=== PATIENT | female | born 1980 | race Hispanic/Latino ===

== ENCOUNTER 2021-08-12 18:34 | Emergency (ER) | payer SELFPAY ==
--- OUTSIDE RECORDS SUMMARY | 2021-08-12 18:38 | XMS REPORT | Continuity of Care Document ---
:1980 Author Organization [facility] t Address [address] [place] [address] Care Team Providers Name Role Phone PCP, PATIENT DOES NOT HAVE A Primary Care Physician UnavailKinza Conde Attending Clinician Unavailable ANTONIO Attending Clinician Unavailable Antonio RAMOS Attending Clinician Doctor Unassigned, Name Attending Clinician Unavailable CURTIS Attending Clinician Unavailable ANTONIO Admitting Clinician Unavailable Payers Payer Name Policy Type Policy Number Effective Date Expiration Date S ource Problems Condition Condition Condition Status Onset Resolution Last Treating Co mments Source Name Details Category Date Date Treatment Clinician Date Obesity Obesity Disease Active Univers (BMI (BMI 8-28 ity of 30-39.9) 30-39.9) 00:00: [place] 00 Medical Branch Flatulence Flatulence Disease Active Overview : Univers , , 6-20 Formattin ity of eructation eructation 00:00: g of this [place] , and gas , and gas 00 note Medi estephania pain pain might be Branch different from the original. Added automatic ally from request for surgery [id number] Abdominal Abdominal Disease Active Overview: Univers pain, pain, 6-20 Formattin ity of epigastric epigastric 00:00: g of this [place] 00 note Medical might be Branch different from the original. Added automatic ally from request for surgery [id number] Dysphagia, Dysphagia, Disease Active Overview : Univers pharyngoes pharyngoes 6-20 Formattin ity of ophageal ophageal 00:00: g of this J[place] as phase phase 00 note Medical might be Branch different from the original. Added automatic ally from request for surgery [id number] Nausea and Nausea and Disease Active Overview : Univers vomiting vomiting 6-20 Formattin ity of in adult in adult 00:00: g of this Jt as 00 note Medical might be Branch different from the original. Added automatic ally from request for surgery [id number] Breast Breast Disease Active Univers pain pain 9-26 ity of 00:00: Medical Branch UTI UTI Disease Active Univers symptoms symptoms 9-15 ity of 00:00: [place] [facility] Well woman Well woman Disease Active U nivers exam exam 9-20 ity of 00:00: [place] [facility] Right Right Disease Active Univers adnexal adnexal 9-20 ity of tenderness tenderness 00:00: [place] [address] Medical Branch Over Over Disease Active Univers weight weight 9-20 ity of 00:00: [place] [facility] Allergies, Adverse Reactions, Alerts Allergy Allergy Status Severity Reaction(s) Onset Inactive Treating Comm ents Source Name Type Date Date Clinician AMOXICIL DRUG Active Med Rash Univers LOLA INGREDI 9-15 ity of 00:00: [place] [address] Medical Branch Amoxicil Propensi Active Rash Univer s lola ty to 9-15 ity of adverse 00:00: [place] reaction 00 Medical s Branch Social History Social Habit Start Date Stop Date Quantity Comments Source History SDRI University o f Alcohol Frequency [place] M edical Branch History [facility] University o f Alcohol Std [place] Medical Drinks Branch History [facility] o f Alcohol Binge [place] Medic al Branch Exposure to Not sure [facility] SARS-CoV-2 [place] Medical (event) Branch Alcohol intake 2020-12-11 2020-12-11 Current University of 00:00:00 00:00:00 non-drinker of [facility] alcohol Branch (finding) Alcohol Comment 2017-10-31 2017-10-31 social Universit y of 00:00:00 00:00:00 [facility] Sex Ass[birth year] Universit y of 00:00:00 00:00:00 [facility] Smoking Status Start Date Stop Date Source Never smoker [facility] Medical Branch Medications Ordered Filled Start Stop Current Ordering Indication Dosage Frequency Signature Comments Components Source Medication Medication Date Date Medication? Clinician (SIG) Name Name maalox:diph 2020-05 No 15mL 15 mL, Uni vers enhydrAMINE 06-12 Oral, ity of :lidocaine 04:45: 03:45 ONCE, 1 Jt as 2 % viscous 00 :00 dose, On Medi estephania 1:1:1 Mon Branch (FIRST[facility]MOUT 04/11/21 [facility]) at 2245, oral NEGIN suspension 15 mL pantoprazol 2020-05 No 40mg 40 mg, Uni vers e 06-12 Slow IV ity of (PROTONIX) 04:00: 02:57 Push, [place] injection 00 :00 ONCE, 1 Medical 40 mg dose, On Branch [facility] 04/11/21 at 2200 morpHINE 2020-05 No 4mg 4 mg, Slow Un hui injection 4 06-12 IV Push, ity of mg 02:30: 01:46 ONCE, 1 [place] 00 :00 dose, On Medical [facility] Branch 04/11/21 at 2030, STAT ondansetron 2020-05 No 4mg 4 mg, Slow Univers (ZOFRAN 06-12 IV Push, ity of (PF)) 02:30: 01:46 ONCE, 1 [place] injection 4 00 :00 dose, On [facility] estephania mg [facility] Branch 04/11/21 at 2030, NEGIN NaCl 0.9% 2020-05 No 1000mL at 999 Uni vers (NS) bolus 06-1230 mL/hr, ity of infusion 02:30: 02:30 1,000 mL, Jt as 1,000 mL 00 :00 IV Medical Infusion, Branch ONCE, 1 dose, On [facility] 04/11/21 at 2030, NEGIN FENTanyl PF 2020-05 No 100ug 100 mcg, Univers (SUBLIMAZE 06-12 Slow IV ity o f (PF)) 02:26: 02:29 Push, [place] injection 00 :00 ONCE, 1 Medical 100 mcg dose, On Branch [facility] 04/11/21 at 2030, Routine metoclopram 2020-05 No 10mg 10 mg, Uni vers cherry HCl 06-12 Slow IV ity of (REGLAN) 02:26: 02:29 Push, [place] injection 00 :00 ONCE, 1 Medical 10 mg dose, On Branch 04/11/21 at 2030, NEGIN ondansetron 2020-05 Yes [id number] 4mg Take 1 Univers 4 mg 1-29 tablet by ity of disintegrat 00:00: mouth [place] ing tablet 00 every 4 Medica l (four) Branch hours as needed for Nausea and Vomiting (N/V). sucralfate 2020-05 Yes [id number] 1g Take 1 U nivers 1 gram 1-29 tablet by ity of tablet 00:00: mouth [place] 00 before Medical meals and Branch at bedtime. pantoprazol 2020-05 Yes [id number] 40mg Take 1 Univers e 40 mg EC 1-29 tablet by ity of tablet 00:00: mouth [place] 00 daily. Medical Branch dicyclomine 2020-05 Yes [id number] 20mg Take 1 Univers 20 mg 1-29 tablet by ity of tablet 00:00: mouth 4 [place] 00 (four) Medical times Branch daily. albuterol Yes [id number] 2{puff} Inhale 2 Univers 90 7-31 Puffs ity of mcg/actuati 00:00: every 4 Jt as on inhaler 00 (four) Medical hours as Branch needed for Wheezing or Shortness of Breath. benzonatate Yes [id number] 200mg Take 2 Univers 100 mg 7-31 capsules ity of capsule 00:00: [place] mouth 3 [place] 00 (three) Medical times Branch daily as needed for Cough. albuterol Yes [id number] 2{puff} Inhale 2 Univers 90 7-31 Puffs ity of mcg/actuati 00:00: every 4 Jt as on inhaler 00 (four) Medical hours as Branch needed for Wheezing or Shortness of Breath. benzonatate Yes [id number] 200mg Take 2 Univers 100 mg 7-31 capsules ity of capsule 00:00: [place] 3 [place] 00 (three) Medical times Branch daily as needed for Cough. Immunizations Ordered Filled Immunization Date Status Comments [facility] e Immunization Name Name TDAP (ADACEL) 2016-01-[address] [facility] VACCINE 00:00:00 [facility] TDAP (ADACEL) 2016-01-13 Completed [place] of VACCINE 00:00:00 [facility] Rubella 2010-12-15 Completed University of 00:00:00 [facility] Rubella 2010-12-15 Completed University of 00:00:00 [facility] Td 2009-10-03 Completed University of 00:00:00 [facility] Td 2009-10-03 Completed University of 00:00:00 [facility] Influenza Virus 2008-06-26 Completed Universit y of Vaccine 00:00:00 [facility] MMR 2008-06-26 Completed University of 00:00:00 [facility] Influenza Virus 2008-06-26 Completed Universit y of Vaccine 00:00:00 [facility] MMR 2008-06-26 Completed University of 00:00:00 [facility] Vital Signs Vital Name Observation Time Observation Value Comments Source Systolic blood 2021-04-12 05:01:00 105 mm[Hg] [facility] Diastolic blood 2021-04-12 05:01:00 68 mm[Hg] [facility] Heart rate 2021-04-12 05:01:00 77 /min [facility] Respiratory rate 2021-04-12 05:01:00 16 /min [facility] Oxygen saturation in 2021-04-12 05:01:00 99 /min [facility] Arterial blood by [facility] Pulse oximetry Branch Body height 2021-04-12 00:59:[address] [facility] Body weight 2021-04-12 00:59:[address] [facility] BMI 2021-04-12 00:59:00 30.18 kg/m2 [facility] Body temperature 2021-04-12 00:59:00 37.72 [place] [facility] Procedures Procedure Date / Time Performing Clinician Source Performed CT ABDOMEN PELVIS WO 2021-04-12 02:19:08 Tamika Alvarez [facility] CONTRAST [facility] LIPASE 2021-04-12 01:49:00 Tamika Alvarez [facility] COMP. METABOLIC PANEL 2021-04-12 01:49:00 Tamika Alvarez [facility] ([id number]) [facility] CBC WITH DIFF 2021-04-12 01:49:00 Tamika Alvarez [facility] PROTHROMBIN TIME / INR 2021-04-12 01:49:00 Tamika Alvarez [facility] ACTIVATED PARTIAL 2021-04-12 01:49:00 Tamika Alvarez [facility] THRMPLAS [facility] URINALYSIS 2021-04-12 01:49:00 Tamika Alvarez o f [facility] COVID-19 (ID NOW RAPID 2021-04-12 01:49:00 Tamika Alvarez [facility] TESTING) [facility] POCT TEST 2021-04-12 01:48:00 Tamika Alvarez ty of [facility] CONSENT/REFUSAL FOR 2021-04-12 00:45:07 Doctor [facility] [place] [facility] Encounters Start End Encounter Admission Attending Care Care Encounter Source Date/Time Date/Time Type Type Clinicians Facility Department ID 2021-03-14 Emergency [facility] [id number] Univers 12:11:44 itnithin [facility] 2021-07-20 2021-07-20 Outpatient Kinza HALLMAN [facility] [id number] Univers 15:00:00 15:00:00 ALLI ramires o f [facility] 2021-07-20 2021-07-20 [facility] [id number] Univers 14:15:00 14:15:00 ALLI [id number] ity o f [facility] 2021-04-11 2021-04-11 Emergency [facility] [id number] Univers 19:07:00 23:10:00 TAMIKA ramires [facility] 2021-04-11 2021-04-11 [facility] [id number] Univers 19:07:00 23:10:00 Tamika ROME [id number] i ty of [place] 4.2.7.2.686 [facility] [id number] [facility] 084 Branch 2021-04-11 2021-04-11 Orders Doctor LINARES [id number] Univers 00:00:00 00:00:00 Only UnassignedSALEEM [id number] ity of [place] [facility] 4.2.7.2.686 Jt as [id number] [address] 2020-10-04 2020-10-04 Outpatient Kinza ACEVEDO [facility] [id number] Univers 10:30:00 10:30:00 WIL [id number] [facility] 2020-10-04 2020-10-04 Outpatient Kinza ACEVEDO [facility] [id number] Univers 10:30: 10:30:00 WIL [facility] Results Test Description Test Time Test Comments Results Result Comments Source COMP. METABOLIC PANEL ([id number]) 2021-04-12 02:22:00 Test Item Value Reference Range Interpretation Comme nts NA (test code = 9790808305) 135 mmol/L 135-145 K (test code = 1366614459) 3.9 mmol/L 3.5-5.0 CL (test code = 1153024250) 104 mmol/L 98-108 CO2 TOTAL (test code = 23 mmol/L 23-31 7663969606) AGAP (test code = 9618204809) 2-16 BUN (test code = 3218564997) 15 mg/dL 7-23 GLUCOSE (test code = 2300605612) 107 mg/dL 70-110 CREATININE (test code = 0.62 mg/dL 0.50-1.04 6444172657) TOTAL BILI (test code = 0.6 mg/dL 0.1-1.4 7659018214) CALCIUM (test code = 8126339368) 9.0 mg/dL 8.6-10.6 T PROTEIN (test code = 7.3 g/dL 6.3-8.2 8604570928) ALBUMIN (test code = 1009646732) 4.3 g/dL 3.5-5.0 ALK PHOS (test code = 2118962862) 73 U/L 34-122 ALTv (test code = 1742-6) 17 U/L 5-35 AST(SGOT) (test code = 27 U/L 13-40 9057519394) eGFR (test code = 3897910015) mL/min/1.73m2 TRINY (test code = TRINY) Association of Glomerular Filtration Rate (GFR) and Staging of Kidney Disease* + +--------- + ----+| GFR (mL/min/1.73 m2) ?| With Kidney Damage ?| ?Without Kidney Damage+ +--- + +| ?>90 ?| ?Stage one ?| ? Normal ?+ +-------- + -----+| ?60-89 ?| ?Stage two ?| ? Decreased GFR ? + +--------- + ----+| ?30-59 ?| ?Stage three ?| ? Stage three ? + +--------- + ----+| ?15-29 ?| ?Stage four ? | ? Stage four ?+ +-------- + -----+| ?<15 (or dialysis) ? ?| ?Stage five ? | ? Stage five ?+ +-------- + -----+ *Each stage assumes the associated GFR level has been in effect for at least three months. ?Stages 1 to 5, with or without kidney disease, indicate chronic kidney disease. Notes: Determination of stages one and two (with eGFR >59mL/min/1.73 m2) requires estimation of kidney damage for at least three months as defined by structural or functional abnormalities of the kidney, manifested by either:Pathological abnormalities or Markers of kidney damage (including abnormalities in the composition of the blood or urine or abnormalities in imaging tests). [facility]22[facility]00 Test Item Value Reference Range Interpretation Comments LIPASE (test code = 5441426158) 49 U/L 0-220 Lab Interpretation (test code = Normal 66161-4) [facility] THRMPLAS [id number] 02:17:41 Test Item Value Reference Range Interpretation Comments APTT Patient (test See_Comment [Automat ed code = 3173-2) message] The system which generated this result transmitted reference range : 23 - 38 Seconds . The reference range was not used to interpr et this result as normal/abnormal . TRINY (test code = TRINY) The [facility] patient population mean normal value for aPTT is 30 seconds. Lab Interpretation Normal (test code = 54542-1) [facility] / [id number] 02:15:40 Test Item Value Reference Range Interpretation Comments PROTIME PATIENT (test See_Comment [Auto mated message] code = 5964-2) The system wh ich generated this result transmitted ref erence range: 12.0 - 1 4.7 Seconds. The re ference range was not u sed to interpret this result as normal/abnor mal. INR (test code = 6301-6) Nor mal INR <1.1; Warfarin Therap eutic range 2.0 to 3. 0 or 2.5 to 3.5, dep ending upon the indica tions. Lab Interpretation (test Normal code = 17870-4) [facility] WITH [id number] 02:08:23 Test Item Value Reference Range Interpretation Comments WBC (test code = See_Comment [Automated 6690-2) message] The sy stem which generated this result transmitted reference range : 4.30 - 11.10 10*3/?L. The reference range was not used to interpret this result as normal/abnormal . RBC (test code = See_Comment [Automated 789-8) message] The sy stem which generated this result transmitted reference range : 3.93 - 5.25 10*6/?L. The reference range was not used to interpret this result as normal/abnormal . HGB (test code = 12.9 g/dL 11.6-15.0 718-7) HCT (test code = 38.7 % 35.7-45.2 4544-3) MCV (test code = 87.2 fL 80.6-95.5 787-2) MCH (test code = 29.1 pg 25.9-32.8 785-6) MCHC (test code = 33.3 g/dL 31.6-35.1 786-4) RDW-SD (test code = 40.4 fL 39.0-49.9 11180-7) RDW-CV (test code = 12.6 % 12.0-15.5 788-0) PLT (test code = See_Comment L [Automated 777-3) message] The sy stem which generated this result transmitted reference range : 166 - 358 10*3/ ?L. The reference r jayda was not used to interpret this result as normal/abnormal . MPV (test code = 12.5 fL 9.5-12.9 72844-0) NRBC/100 WBC (test See_Comment [Automat ed code = 8323742272) message] The system which generated this result transmitted reference range : 0.0 - 10.0 /100 WBCs. The refer ence range was not u sed to interpret th is result as normal/abnormal . NRBC x10^3 (test code <0.01 See_Comment [Auto mated = 3388702126) message] The s ystem which generated this result transmitted reference range : 10*3/?L. The reference range was not used to interpret this result as normal/abnormal . GRAN MAT (NEUT) % 78.2 % (test code = 770-8) IMM GRAN % (test code 0.60 % = 5683439455) LYMPH % (test code = 13.9 % 736-9) MONO % (test code = 6.9 % 5905-5) EOS % (test code = 0.2 % 713-8) BASO % (test code = 0.2 % 706-2) GRAN MAT x10^3(ANC) 4.21 10*3/uL 1.88-7.09 (test code = 3529327611) IMM GRAN x10^3 (test 0.03 10*3/uL 0.00-0.06 code = 3370146599) LYMPH x10^3 (test code 0.75 10*3/uL 1.32-3.29 L = 731-0) MONO x10^3 (test code 0.37 10*3/uL 0.33-0.92 = 742-7) EOS x10^3 (test code = <0.03 0.03-0.39 L 711-2) BASO x10^3 (test code <0.03 0.01-0.07 = 704-7) Lab Interpretation Abnormal (test code = 63073-9) [facility] [id number] 01:48:00 Test Item Value Reference Range Interpretation Comments POCT PREG (test code = 1605) negative On board controls acceptable with present C Line (test code = 3574) POCT PREG LOT # (test code = 3575) [id number] POCT PREG TEST DATE (test 2022-06-13 code = 3576) Lab Interpretation (test code = Normal 61267-9) [facility]"
[2021-08-12] MEDS ORDERED: ACETAMINOPHEN 500 MG TAB ONE (19:55)
[2021-08-12] MEDS ORDERED: BENZONATATE 100 MG CAP PO ONE (19:56)
[2021-08-12 20:07] LABS: SARS-COV-2 RT PCR NEGATIVE (NEGATIVE)
[2021-08-12 20:08] LABS: Urine Blood Negative (Negative); Urine Glucose Negative (Negative); Urine Protein Negative (Negative); Urine pH 6.5 (5.0-7.0)
--- NOTE | 2021-08-12 21:41 | RAD REPORT ---
EXAM DESCRIPTION: RAD - Chest Pa And Lat (2 Views) - 08/12/2021 8:35 pm CLINICAL HISTORY: COUGH COMPARISON: Portable 04/19/2011 TECHNIQUE: Frontal and lateral views of the chest were obtained. FINDINGS: The lungs are clear. Heart size is normal and central vasculature is within normal limit s. No pleural effusion or pneumothorax seen. No acute bony finding noted. No aortic abnormality. No significant change from comparison study. IMPRESSION: No acute cardiopulmonary process.
--- NOTE | 2021-08-12 21:59 | EDPHYS ---
Physician Documentation [facility] Name: Kemi Miller Age: 41 yrs Sex: Female : 1980 Arrival Date: 08/12/2021 Time: 18:36 Bed 11 Private MD: ED Physician Nicho Phan Historical: - Allergies: 08/12 18:41 PENICILLINS; ab2 18:41 Amoxicillin; ab2 - PMHx: 18:41 None; ab2 - PSHx: 18:41 Appendectomy; Cholecystectomy; ab2 - Immunization history:: Adult Immunizations up to date. - Social history:: Smoking status: Patient denies any tobacco usage or history of. Vital Signs: 18:39 BP 143 / 89; Pulse 77; Resp 16; Temp 97.8(TE); Pulse Ox 100% on R/A; Weight 72.57 kg; ab2 Height 5 ft. 2 in. (157.48 cm); Pain 5/10; 21:14 BP 110 / 72; Pulse 80; Resp 16; Pulse Ox 100% on R/A; Pain 6/10; ab2 18:39 Body Mass Index 29.26 (72.57 kg, 157.48 cm) ab2 MDM: 19:37 Patient medically screened. cp 08/12 18:44 Order name: COVID-19/FLU A+B (Document "Date of Onset" if Symptomatic); Complete Time: ab2 21:16 08/12 19:48 Order name: Strep cp 08/12 19:48 Order name: XRAY Chest Pa And Lat (2 Views); Complete Time: 21:52 cp 08/12 20:08 Order name: Urine Dipstick-Ancillary; Complete Time: 21:16 EDSC 08/12 19:48 Order name: Urine Dipstick-Ancillary (obtain specimen); Complete Time: 20:12 cp 08/12 19:48 Order name: Urine Test (obtain specimen); Complete Time: 20:12 cp Administered Medications: 19:56 Drug: Tylenol 1000 mg Route: PO; ag7 21:15 Follow up: Response: No adverse reaction ab2 19:57 Drug: Tessalon Perle (benzonatate) 100 mg Route: PO; ag7 21:15 Follow up: Response: No adverse reaction ab2 22:12 CANCELLED (Physician Discretion): Benadryl (diphenhydrAMINE) 50 mg IVP once cp 22:13 CANCELLED (Duplicate Order): Benadryl (diphenhydrAMINE) 50 mg PO once tw5 22:15 Drug: predniSONE 60 mg Route: PO; ag7 22:23 Follow up: Response: Medication administered at discharge. ag7 22:15 Drug: Pepcid (famotidine) 20 mg Route: PO; ag7 22:23 Follow up: Response: Medication administered at discharge. ag7 22:15 Drug: Benadryl (diphenhydrAMINE) 50 mg Route: PO; ag7 22:23 Follow up: Response: No adverse reaction; Medication administered at discharge. ag7 Disposition Summary: 08/12/21 21:58 Discharge Ordered Location: Home cp Problem: new cp Symptoms: have improved cp Condition: Stable cp Diagnosis - Acute pharyngitis, unspecified cp - Cough cp Followup: cp - With: Private Physician - When: 2 - 3 days - Reason: Worsening of condition Discharge Instructions: - Discharge Summary Sheet cp - Sore Throat cp - Cool Mist Vaporizer cp - Cough, Adult cp Forms: - Medication Reconciliation Form cp - Thank You Letter cp - Antibiotic Education cp - Prescription Opioid Use cp Prescriptions: - Bromfed DM 2-30-10 mg/5 mL Oral syrup - take 10 milliliter by ORAL route every 6 hours; 180 milliliter; Refills: 0, cp Product Selection Permitted - clarithromycin 500 mg Oral tablet - take 1 tablet by ORAL route every 12 hours for 10 days; 20 tablet; Refills: 0, cp Product Selection Permitted Signatures: Dispatcher [employer] [facility] Saul Mercedes PA PA cp Wood, Tiffany tw5 Jeovanny Kimble 2 Jennifer Whitaker RN RN ag7 Corrections: (The following items were deleted from the chart) 22:12 21:16 Benadryl (diphenhydrAMINE) 50 mg IVP once ordered. cp cp 22:13 22:13 Benadryl (diphenhydrAMINE) 50 mg PO once ordered. tw5 tw5
--- NOTE | 2021-08-12 21:59 | ER ---
Nurse's Notes [facility] Name: Kemi Miller Age: 41 yrs Sex: Female : 1980 Arrival Date: 08/12/2021 Time: 18:36 Bed 11 Private MD: Diagnosis: Acute pharyngitis, unspecified;Cough Presentation: 08/12 18:39 Chief complaint: Patient states: "I started having throat pain and itching, now my ears ab2 hurting and my back hurts from coughing so much." Pt denies n/v/d, abdominal pain, chest pain or SOB. Chief complaint:. Coronavirus screen: Vaccine status: Patient reports receiving the 2nd dose of the covid vaccine. Client denies travel out of the [place] in the last 14 days. cough unrelated to allergies, muscle pain, sore throat, Client presents with at least one sign or symptom that may indicate coronavirus-19. Standard/surgical mask placed on the client. Provider contacted for isolation considerations. Ebola Screen: Patient negative for fever greater than or equal to 101.5 degrees Fahrenheit, and additional compatible Ebola Virus Disease symptoms Patient denies exposure to infectious person. Patient denies travel to an Ebola-affected area in the 21 days before illness onset. No symptoms or risks identified at this time. Initial Sepsis Screen: Does the patient meet any 2 criteria? No. Patient's initial sepsis screen is negative. Does the patient have a suspected source of infection? No. Patient's initial sepsis screen is negative. Risk Assessment: Do you want to hurt yourself or someone else? Patient reports no desire to harm self or others. Onset of symptoms is unknown. 18:39 Method Of Arrival: Ambulatory ab2 18:39 Acuity: [place] 4 ab2 Triage Assessment: 18:42 General: Appears in no apparent distress. comfortable, Behavior is calm, cooperative, ab2 appropriate for age. Pain: Complains of pain in neck. EENT: Reports nasal congestion pain when swallowing ear pain. Neuro: Level of Consciousness is awake, alert, obeys commands, Oriented to person, place, time, situation, Appropriate for age. Cardiovascular: No deficits noted. Respiratory: Airway is patent. GI: No deficits noted. Historical: - Allergies: 18:41 PENICILLINS; ab2 18:41 Amoxicillin; ab2 - PMHx: 18:41 None; ab2 - PSHx: 18:41 Appendectomy; Cholecystectomy; ab2 - Immunization history:: Adult Immunizations up to date. - Social history:: Smoking status: Patient denies any tobacco usage or history of. Screenin:01 Abuse screen: Denies threats or abuse. Denies injuries from another. Nutritional ab2 screening: No deficits noted. Tuberculosis screening: No symptoms or risk factors identified. Fall Risk None identified. Assessment: 20:00 General: Appears in no apparent distress. comfortable, Behavior is calm, cooperative, ab2 appropriate for age. Pain: Denies pain. Neuro: Level of Consciousness is awake, alert, obeys commands, Oriented to person, place, time, situation, Appropriate for age [employer] are equal bilaterally Cardiovascular: No deficits noted. Respiratory: No deficits noted. Airway is patent Respiratory effort is even, unlabored, Breath sounds are clear bilaterally. GI: No deficits noted. No signs and/or symptoms were reported involving the gastrointestinal system. 21:14 Reassessment: Patient appears in no apparent distress at this time. Pt c/o itching, ab2 JAMAL Mercedes notified. Pt denies any further needs at this time. 22:22 EENT: Throat. ag7 Vital Signs: 18:39 BP 143 / 89; Pulse 77; Resp 16; Temp 97.8(TE); Pulse Ox 100% on R/A; Weight 72.57 kg; ab2 Height 5 ft. 2 in. (157.48 cm); Pain 5/10; 21:14 BP 110 / 72; Pulse 80; Resp 16; Pulse Ox 100% on R/A; Pain 6/10; ab2 18:39 Body Mass Index 29.26 (72.57 kg, 157.48 cm) ab2 ED Course: 18:36 Patient arrived in ED. as 18:41 Triage completed. ab2 18:42 Arm band placed on left wrist. ab2 19:17 COVID-19/FLU A+B (Document "Date of Onset" if Symptomatic) Sent. ld1 19:21 Saul Mercedes PA is PHCP. cp 19:21 Nicho Phan MD is Attending Physician. cp 20:00 Jeovanny Kimble is Primary Nurse. ab2 20:01 Patient has correct armband on for positive identification. Bed in low position. Call ab2 light in reach. Side rails up X2. 20:01 No provider procedures requiring assistance completed. ab2 20:37 XRAY Chest Pa And Lat (2 Views) In Process Unspecified. EDMS 22:12 Strep Sent. tw5 22:22 Patient did not have IV access during this emergency room visit. ag7 Administered Medications: 19:56 Drug: Tylenol 1000 mg Route: PO; ag7 21:15 Follow up: Response: No adverse reaction ab2 19:57 Drug: Tessalon Perle (benzonatate) 100 mg Route: PO; ag7 21:15 Follow up: Response: No adverse reaction ab2 22:12 CANCELLED (Physician Discretion): Benadryl (diphenhydrAMINE) 50 mg IVP once cp 22:13 CANCELLED (Duplicate Order): Benadryl (diphenhydrAMINE) 50 mg PO once tw5 22:15 Drug: predniSONE 60 mg Route: PO; ag7 22:23 Follow up: Response: Medication administered at discharge. ag7 22:15 Drug: Pepcid (famotidine) 20 mg Route: PO; ag7 22:23 Follow up: Response: Medication administered at discharge. ag7 22:15 Drug: Benadryl (diphenhydrAMINE) 50 mg Route: PO; ag7 22:23 Follow up: Response: No adverse reaction; Medication administered at discharge. ag7 Outcome: 21:58 Discharge ordered by . cp 22:22 Discharged to home ambulatory. ag7 22:22 Condition: stable 22:22 Discharge instructions given to patient, Instructed on discharge instructions, follow up and referral plans. medication usage, Demonstrated understanding of instructions, follow-up care, medications, Prescriptions given X 2. 22:24 Patient left the ED. ag7 Signatures: Dispatcher [employer] EDNay Butler Corey, PA PA cp Reyna Causey, BRIANNA RN [email or web address] Belinda Peña tw5 Jeovanny Kimble ab2 Jennifer Whitaker RN RN ag7
[2021-08-12] MEDS ORDERED: FAMOTIDINE 20 MG TAB ONE (22:14)
[2021-08-12] MEDS ORDERED: DIPHENHYDRAMINE 25 MG TAB/CAP ONE (22:14)
[2021-08-12] MEDS ORDERED: predniSONE 20 MG TAB ONE (22:14)
[2021-08-12 23:42] VITALS: TEMP 97.8; O2SAT 100
[2021-08-12 23:43] VITALS: BP 110/72
== END 2021-08-12 22:24 | disposition home or self-care (01) ==
LOC: ER 18:34
DX: R05.9 Cough, unspecified (principal); Z20.822 Contact with and (suspected) exposure to COVID-19; Z88.0 Allergy status to penicillin; Z88.1 Allergy status to other antibiotic agents
CPT/HCPCS: 0240U; 71046; 81003; 87070; 87081; 99284; J7512

== ENCOUNTER 2022-01-24 13:26 | Emergency (ER) | payer SELFPAY ==
--- OUTSIDE RECORDS SUMMARY | 2022-01-24 13:30 | XMS REPORT | Continuity of Care Document ---
:1980 Author Organization [facility] t Address [address] [place] [address] Care Team Providers Name Role Phone Pcp, Patient Does Not Have A Primary Care Physician [id number] JUDITH LENTZ Attending Clinician Unavailable Judith Lentz DO Attending Clinician ALLI HALLMAN Attending Clinician Unavailable TAMIKA PARRA Attending Clinician Unavailable Tamika Parra MD Attending Clinician Doctor Unassigned, [place] Attending Clinician Unavailable WIL ACEVEDO Attending Clinician Unavailable TAMIKA PARRA Admitting Clinician Unavailable Payers Payer Name Policy [...] Added automatic ally from request for surgery [id number] Abdominal Abdominal Disease Active Overview: Univers pain, pain, 6-20 Formattin ity of epigastric epigastric 00:00: g of this [place] 00 note Medical might be Branch different from the original. Added automatic ally from request for surgery [id number] Dysphagia, Dysphagia, Disease Active Overview : Univers pharyngoes pharyngoes 6-20 Formattin ity of ophageal ophageal 00:00: g of this [place] as phase phase 00 note Medical might be Branch different from the original. Added automatic ally from request for surgery [id number] Nausea and Nausea and Disease Active Overview : Univers vomiting vomiting 6-20 Formattin ity of in adult in adult 00:00: g of this Jt as 00 note Medical might be Branch different from the original. Added automatic ally from request for surgery [id number] Breast Breast Disease Active Univers pain pain 9-26 ity of 00:00: Medical Branch UTI UTI Disease Active Univers symptoms symptoms 9-15 ity of 00:00: Medical Branch Well woman Well woman Disease Active U nivers exam exam 9-20 ity of 00:00: Medical Branch Right Right Disease Active Univers adnexal adnexal 9-20 ity of tenderness [place] [facility] [place] Over Over Disease Active Univers weight weight 9-20 ity of 00:00: Medical Branch Allergies, Adverse Reactions, Alerts Allergy Allergy Status Severity Reaction(s) Onset Inactive Treating Comm ents Source Name Type Date Date Clinician AMOXICIL DRUG Active Med Rash Univers LOLA INGREDI 9-15 ity of 00:00: [place] 00 Medical Branch Amoxicil Propensi Active Rash Univer s lola ty to 9-15 ity of adverse 00:00: [place] reaction 00 Medical s Branch Social History Social Habit Start Date Stop Date Quantity Comments Source History [facility] o f Alcohol Frequency [place] [facility] History [facility] o f Alcohol Std [place] [facility] Drinks Branch History [facility] o f Alcohol Binge [place] [facility] Exposure to Not sure University of SARS-CoV-2 [place] [facility] (event) Branch Alcohol intake 2022-01-18 2022-01-18 Current University of 00:00:00 00:00:00 non-drinker of [facility] alcohol Branch (finding) Alcohol Comment 2017-10-31 2017-10-31 social Universit y of 00:00:00 00:00:00 [facility] [birth year] [facility] Smoking Status Start Date Stop Date Source Never smoked tobacco [facility] Medications Ordered Filled Start Stop Current Ordering Indication Dosage Frequency Signature Comments Components Source Medication Medication Date Date Medication? Clinician (SIG) Name Name mirian:diph 2020-05- No 15mL 15 mL, Uni vers enhydrAMINE 06-12 Oral, ity of :lidocaine 04:45: 03:45 ONCE, 1 [place]t as 2 % viscous 00 :00 dose, On Medi estephania 1:1:1 [facility] Branch (FIRST-MOUT 04/11/21 [facility]) at 2245, oral NEGIN suspension 15 mL pantoprazol 2020-05 No 40mg 40 mg, Uni vers e 06-12 Slow IV ity of (PROTONIX) 04:00: 02:57 Push, [place] injection 00 :00 ONCE, 1 Medical 40 mg dose, On Branch [facility] 04/11/21 at 2200 morpHINE 2020-05 No 4mg 4 mg, Slow Un hui injection 4 06-12 IV Push, ity of mg 02:30: 01:46 ONCE, 1 [place] 00 :00 dose, On Medical [facility] Branch 04/11/21 at 2030, STAT ondansetron 2020-05 No 4mg 4 mg, Slow Univers (ZOFRAN 06-12 IV Push, ity of (PF)) 02:30: 01:46 ONCE, 1 [place] injection 4 00 :00 dose, On Medi estephania mg [facility] Branch 04/11/21 at 2030, NEGIN NaCl 0.9% 2020-05 No 1000mL at 999 Uni vers (NS) bolus 30 -30 mL/hr, ity of infusion 02:30: 02:30 1,000 mL, Jt as 1,000 mL 00 :00 IV Medical Infusion, Branch ONCE, 1 dose, On [facility] 04/11/21 at 2030, NEGIN FENTanyl PF 2020-05 No 100ug 100 mcg, Univers (SUBLIMAZE 06-12 Slow IV ity o f (PF)) 02:26: 02:29 Push, [place] injection 00 :00 ONCE, 1 Medical 100 mcg dose, On Branch Sun04/11/21 at 2030, Routine metoclopram 2020-05- No 10mg 10 mg, Uni vers cherry HCl 30 11-30 Slow IV ity of (REGLAN) 02:26: 02:29 Push, [place] injection 00 :00 ONCE, 1 Medical 10 mg dose, On Branch 04/11/21 at 2030, NEGIN dicyclomine 2020-05 Yes 20mg Take 1 Univers 20 mg 1-29 tablet by ity of tablet 00:00: mouth 4 [place] 00 (four) Medical times Branch daily. ondansetron 2020-05 Yes 4mg Take 1 Univers 4 mg 1-29 tablet by ity of disintegrat 00:00: mouth [place] ing tablet 00 every 4 Medica l (four) Branch hours as needed for Nausea and Vomiting (N/V). sucralfate 2020-05 Yes [id number] 1g Take 1 U nivers 1 gram 1-29 tablet by ity of tablet 00:00: mouth [place] 00 before Medical meals and Branch at bedtime. pantoprazol 2020-05 Yes 40mg Take 1 Univers e 40 mg EC 1-29 tablet by ity of tablet 00:00: mouth [place] 00 daily. Medical Branch dicyclomine 2020-05 Yes 20mg Take 1 Univers 20 mg 1-29 tablet by ity of tablet 00:00: mouth 4 [place] 00 (four) Medical times Branch daily. ondansetron 2020-05 Yes [id number] 4mg Take 1 Univers 4 mg 1-29 tablet by ity of disintegrat 00:00: mouth [place] ing tablet 00 every 4 Medica l (four) Branch hours as needed for Nausea and Vomiting (N/V). sucralfate 2020-05 Yes [id number] 1g Take 1 U nivers 1 gram 1-29 tablet by ity of tablet 00:00: mouth [place] 00 before Medical meals and Branch at bedtime. pantoprazol 2020-05 Yes [id number] 40mg Take 1 Univers e 40 mg EC 1-29 tablet by ity of tablet 00:00: mouth [place] 00 daily. Medical Branch albuterol Yes [id number] 2{puff} Inhale 2 Univers 90 7-31 Puffs ity of mcg/actuati 00:00: every 4 Jt as on inhaler 00 (four) Medical hours as Branch needed for Wheezing or Shortness of Breath. benzonatate Yes [id number] 200mg Take 2 Univers 100 mg 7-31 capsules ity of capsule 00:00: [place] mouth 3 [place] (three) Medical times Branch daily as needed for Cough. albuterol Yes [id number] 2{puff} Inhale 2 Univers 90 7-31 Puffs ity of mcg/actuati 00:00: every 4 [place]t as on inhaler 00 (four) Medical hours as Branch needed for Wheezing or Shortness of Breath. benzonatate Yes [id number] 200mg Take 2 Univers 100 mg 7-31 capsules ity of capsule 00:00: [place] (three) Medical times Branch daily as needed for Cough. albuterol Yes [id number] 2{puff} Inhale 2 Univers 90 7-31 Puffs ity of mcg/actuati 00:00: every 4 Jt as on inhaler 00 (four) Medical hours as Branch needed for Wheezing or Shortness of Breath. benzonatate Yes [id number] 200mg Take 2 Univers 100 mg 7-31 capsules ity of capsule 00:00: [place] (three) Medical times Branch daily as needed for Cough. Immunizations Ordered Filled Immunization Date Status Comments [facility] e Immunization Name Name TDAP (ADACEL) 2016-01-13 Completed University of VACCINE 00:00:00 [facility] TDAP (ADACEL) 2016-01-13 Completed University of VACCINE 00:00:00 [facility] TDAP (ADACEL) 2016-01-13 Completed University of VACCINE 00:00:00 [facility] Rubella 2010-12-15 Completed University of 00:00:00 [facility] Rubella 2010-12-15 Completed University of 00:00:00 [facility] Rubella 2010-12-15 Completed University of 00:00:00 [facility] Td 2009-10-03 Completed University of 00:00:00 [facility] Td 2009-10-03 Completed University of 00:00:00 [facility] Td 2009-10-03 Completed University of 00:00:00 [facility] Influenza Virus 2008-06-26 Completed Universit y of Vaccine 00:00:00 [facility] MMR 2008-06-26 Completed University of 00:00:00 [facility] Influenza Virus 2008-06-26 Completed Universit y of Vaccine 00:00:00 [facility] MMR 2008-06-26 Completed University of 00:00:00 [facility] Influenza Virus 2008-06-26 Completed Universit y of Vaccine 00:00:00 [facility] MMR 2008-06-26 Completed University of 00:00:00 [facility] Vital Signs Vital Name Observation Time Observation Value Comments Source Systolic blood 2022-01-18 18:35:00 155 mm[Hg] Univer sity of pressure [facility] Diastolic blood 2022-01-18 18:35:00 95 mm[Hg] Unive rsity of pressure [facility] Heart rate 2022-01-18 18:35:00 73 /min Universi ty of [facility] Body temperature 2022-01-18 18:35:00 36.28 [place] Univ ersity of [facility] Respiratory rate 2022-01-18 18:35:00 18 /min Univ ersity of [facility] Body weight 2022-01-18 18:35:00 74.844 kg Universi ty of [facility] BMI 2022-01-18 18:35:00 30.18 kg/m2 Universi ty of [facility] Oxygen saturation in 2022-01-18 18:35:00 100 /min University of Arterial blood by [place] [employer] [facility] Pulse oximetry Branch Systolic blood 2021-04-12 05:01:00 105 mm[Hg] Univer sity of pressure [facility] Diastolic blood 2021-04-12 05:01:00 68 mm[Hg] Unive rsity of pressure [facility] Heart rate 2021-04-12 05:01:00 77 /min Universi ty of [facility] Respiratory rate 2021-04-12 05:01:00 16 /min Univ ersity [facility] Oxygen saturation in 2021-04-12 05:01:00 99 /min University of Arterial blood by [place] [employer] estephania Pulse oximetry Branch Body height 2021-04-12 00:59:00 157.5 cm Universi ty of [facility] Body weight 2021-04-12 00:59:00 74.844 kg Universi ty of [facility] BMI 2021-04-12 00:59:00 30.18 kg/m2 Universi ty of [facility] Body temperature 2021-04-12 00:59:00 37.72 [place] [facility] Procedures Procedure Date / Time Performing Clinician Source Performed COMP. METABOLIC PANEL 2022-01-18 19:01:00 Judith Lentz [facility] ([id number]) Medical Branch CBC WITH DIFF 2022-01-18 19:01:00 Judith Lentz [facility] POCT TEST 2022-01-18 18:59:00 Judith Lentz [facility] NOTICE OF PRIVACY 2022-01-18 18:33:33 Doctor Unassigned, No Univ [facility] PRACTICES Name Medical Branch CONSENT/REFUSAL FOR 2022-01-18 18:33:12 Doctor Unassigned, No Un iversity [facility] DIAGNOSIS AND TREATMENT Name [facility] CT ABDOMEN PELVIS WO 2021-04-12 02:19:08 Tamika Parra [facility] CONTRAST [facility] LIPASE 2021-04-12 01:49:00 Tamika Parra [facility] COMP. METABOLIC PANEL 2021-04-12 01:49:00 Tamika Parra [facility] ([id number]) Medical Branch CBC WITH DIFF 2021-04-12 01:49:00 Tamika Parra [facility] PROTHROMBIN TIME / INR 2021-04-12 01:49:00 Tamika Parra [facility] ACTIVATED PARTIAL 2021-04-12 01:49:00 Tamika Parra [facility] THRMPLAS EVA [facility] URINALYSIS 2021-04-12 01:49:00 Tamika Parra [facility] COVID-19 (ID NOW RAPID 2021-04-12 01:49:00 Tamiak Parra [facility] TESTING) [facility] POCT TEST 2021-04-12 01:48:00 Tamika Parra [facility] CONSENT/REFUSAL FOR 2021-04-12 00:45:07 [facility], [facility] Name [facility] Encounters Start End Encounter Admission Attending Care Care Encounter Source Date/Time Date/Time Type Type Clinicians Facility Department ID 2021-03-14 Emergency [facility] [id number] Univers 12:11:44 ity [facility] 2022-01-18 2022-01-18 [facility] [id number] Univers 13:36:00 15:27:00 JUDITH ity [facility] 2022-01-18 2022-01-18 [facility] [id number] Univers 13:36:00 15:27:00 Judith ROME [id number] ity of [place] 4.2.7.2.686 [facility] [id number] [address] 2021-07-20 2021-07-20 Outpatient Kinza HALLMAN [facility] [id number] Univers 15:00:00 15:00:00 ALLI ity o [facility] 2021-07-20 2021-07-20 [facility] [id number] Univers 14:15:00 14:15:00 ALLI [id number] ity o [facility] 2021-04-11 2021-04-11 Emergency [facility] [id number] Univers 19:07:00 23:10:00 TAMIKA [facility] 2021-04-11 2021-04-11 Emergency [facility] [id number] Univers 19:07:00 23:10:00 Tamika ROME [id number] i ty of [place] 4.2.7.2.686 [facility] [id number] [address] 2021-04-11 2021-04-11 Orders Doctor LINARES [id number] Univers 00:00:00 00:00:00 Only Unassigned, SALEEM [id number] ity of [facility] 4.2.7.2.686 [facility] [id number] [address] 2020-10-04 2020-10-04 Outpatient Kinza ACEVEDO [facility] [id number] Univers 10:30:00 10:30:00 WIL [id number] [facility] 2020-10-04 2020-10-04 Outpatient Kinza ACEVEDO [facility] [id number] Univers 10:30:00 10:30:00 WIL [facility] Results Test Description Test Time Test Comments Results Result Comments Source POCT TEST 2022-01-18 18:59:00 Test Item Value Reference Range Interpretation Comme nts POCT PREG (test code = 1605) negative On board controls acceptable with C Line (test code = 3574) present POCT PREG LOT # (test code = 3575) [id number] POCT PREG TEST DATE (test code = 3576) 04/12/2023 Lab Interpretation (test code = 95102-8) [facility][id number][facility]2021-04-12 02:22:00 Test Item Value Reference Range Interpretation Comments NA (test code = 135 mmol/L 135-145 9127496931) K (test code = 3.9 mmol/L 3.5-5.0 0896438442) CL (test code = 104 mmol/L 98-108 0222148519) CO2 TOTAL (test code 23 mmol/L 23-31 = 5277977209) AGAP (test code = 2-16 1795322383) BUN (test code = 15 mg/dL 7-23 2480030349) GLUCOSE (test code = 107 mg/dL 70-110 2546866004) CREATININE (test code 0.62 mg/dL 0.50-1.04 = 4097916607) TOTAL BILI (test code 0.6 mg/dL 0.1-1.1 = 3570309870) CALCIUM (test code = 9.0 mg/dL 8.6-10.6 2684293661) T PROTEIN (test code 7.3 g/dL 6.3-8.2 = 9497294728) ALBUMIN (test code = 4.3 g/dL 3.5-5.0 9678745251) ALK PHOS (test code = 73 U/L 34-122 5923032867) ALTv (test code = 17 U/L 5-35 1742-6) AST(SGOT) (test code 27 U/L 13-40 = 5588693106) eGFR (test code = mL/min/1.73m2 4268966547) TRINY (test code = TRINY) Association of Glomerular Filtration Rate (GFR) and Staging of Kidney Disease* + + +- +| GFR (mL/min/1.73 m2) ?| With Kidney Damage ?| ?Without Kidney Damage+ ------+ ----+ ------+| ?>90 ?| ?Stage one ?| ? Normal ?+ -+ + -+| ?60-89 ?| ?Stage two ?| ? Decreased GFR ? + + +- +| ?30-59 ?| ?Stage three ?| ? Stage three ? + + +- +| ?15-29 ?| ?Stage four ? | ? Stage four ?+ -+ + -+| ?<15 (or dialysis) ? ?| ?Stage five ? | ? Stage five ?+ -+ + -+ *Each stage assumes the associated GFR level [...] or urine or abnormalities in imaging tests). [facility]00 Test Item Value Reference Range Interpretation Comments LIPASE (test code = 0147446275) 49 U/L 0-220 Lab Interpretation (test code = Normal 15756-2) [facility] THRM[facility]AS [id number] 02:17:41 Test Item Value Reference Range Interpretation Comments APTT Patient (test See_Comment [Automat ed code = 3173-2) message] The system which generated this result transmitted reference range : 23 - 38 Seconds . The reference range was not used to interpr et this result as normal/abnormal . TRINY (test code = TRINY) The [facility] patient population mean normal value for aPTT is 30 seconds. Lab Interpretation Normal (test code = 92904-1) [facility] / [id number] 02:15:40 Test Item Value Reference Range Interpretation [...] tions. Lab Interpretation (test Normal code = 80915-3) [facility] WITH [id number] 02:08:23 Test Item Value Reference Range Interpretation Comments WBC (test code = See_Comment [Automated 9990-2) message] The sy stem which generated this [...] RDW-SD (test code = 40.4 fL 39.0-49.9 01944-8) RDW-CV (test code = 12.6 % 12.0-15.5 788-0) PLT (test code = See_Comment L [Automated 777-3) message] The sy stem which generated this result transmitted reference range : 166 - 358 10*3/ ?L. The reference r jayda was not used to interpret this result as normal/abnormal . MPV (test code = 12.5 fL 9.5-12.9 11521-8) NRBC/100 WBC (test See_Comment [Automat ed code = 8579279629) message] The system which generated this result transmitted reference range : 0.0 - 10.0 /100 WBCs. The refer ence range was not u sed to interpret th is result as normal/abnormal . NRBC x10^3 (test code <0.01 See_Comment [Auto mated = 8715091288) message] The s ystem which generated this result transmitted reference range : 10*3/?L. The reference range was not used to interpret this result as normal/abnormal . GRAN MAT (NEUT) % 78.2 % (test code = 770-8) IMM GRAN % (test code 0.60 % = 0364295985) LYMPH % (test code = 13.9 % 736-9) MONO % (test code = 6.9 % 5905-5) EOS % (test code = 0.2 % 713-8) BASO % (test code = 0.2 % 706-2) GRAN MAT x10^3(ANC) 4.21 10*3/uL 1.88-7.09 (test code = 9474999345) IMM GRAN x10^3 (test 0.03 10*3/uL 0.00-0.06 code = 3938630031) LYMPH x10^3 (test code 0.75 10*3/uL 1.32-3.29 L = 731-0) MONO x10^3 (test code 0.37 10*3/uL 0.33-0.92 = 742-7) EOS x10^3 (test code = <0.03 0.03-0.39 L 711-2) BASO x10^3 (test code <0.03 0.01-0.07 = 704-7) Lab Interpretation Abnormal (test code = 20206-4) [facility] [id number] 01:48:00 Test Item Value Reference Range Interpretation Comments POCT PREG (test code = 1605) negative On board controls acceptable with present C Line (test code = 3574) POCT PREG LOT # (test code = 3575) [id number] POCT PREG TEST DATE (test 2022-06-13 code = 3576) Lab Interpretation (test code = Normal 58235-1) [facility]"
--- NOTE | 2022-01-24 16:29 | RAD REPORT ---
EXAM DESCRIPTION: RAD - Chest Pa And Lat (2 Views) - 01/24/2022 4:20 pm CLINICAL HISTORY: COUGH Chest pain. COMPARISON: Chest Pa And Lat (2 Views) dated 08/12/2021; CHEST SINGLE VIEW dated 04/19/2011 FINDINGS: The lungs are clear. The heart is normal in size. No displaced fractures. IMPRESSION: No acute or concerning finding suspected.
[2022-01-24 16:30] LABS: Urine Blood 2+ (Negative); Urine Glucose Negative (Negative); Urine Protein Negative (Negative); Urine Specific Gravity 1.025 (1.005-1.030); Urine pH 6.5 (5.0-7.0)
[2022-01-24] MEDS ORDERED: HYDROCODONE/CHLORPHEN 5 ML/OSYR ONE (16:33)
[2022-01-24 16:45] LABS: Absolute Lymphocytes (CBC) 2.5 K/uL (0.7-4.9); Lymphocytes % 33.6 % (15.3-44.8); MPV 9.5 fL (7.6-11.3); RBC Red Blood Cell Count 4.37 M/uL (3.86-4.86)
[2022-01-24 17:02] LABS: Albumin 3.8 g/dL (3.4-5.0); Bilirubin Total 0.3 mg/dL (0.2-1.0); Potassium 3.7 mmol/L (3.5-5.1); Protein, Total 8.2 g/dL (6.4-8.2)
[2022-01-24 17:07] LABS: Urine Mucus Slight /HPF (None Seen); Urine RBC >50 /HPF (None Seen)
[2022-01-24] MEDS ORDERED: NA CHLORIDE 0.9% 1,000 ML ONE (17:31)
[2022-01-24] MEDS ORDERED: KETOROLAC 30 MG/ML INJ ONE (17:31)
--- NOTE | 2022-01-24 18:22 | RAD REPORT ---
EXAM DESCRIPTION: CTAbdomen Pelvis W Contrast - 01/24/2022 6:14 pm CLINICAL HISTORY: Abdominal pain. right upper abdomen pain COMPARISON: Abdomen Pelvis W Contrast dated 07/18/2016; CT ABD PELVIS W CONTRAST dated 10/10/2008 TECHNIQUE: Biphasic CT imaging of the abdomen and pelvis was performed with 100 ml non-ionic IV cont rast. All CT scans are performed using dose optimization technique as appropriate and may include automated exposure control or mA/KV adjustment according to patient size. FINDINGS: The lung bases are clear.Cholecystectomy clips. The liver, spleen, pancreas, adrenal glands and kidneys are within normal limits. No bowel obstruction, free air, free fluid or abscess. Sigmoid diverticulosis without diverticulitis. Appendectomy. No evidence of significant lymphadenopathy. No suspicious bony findings. IMPRESSION: No acute intra-abdominal or pelvic finding.
--- NOTE | 2022-01-24 19:19 | ER ---
Nurse's Notes [facility] Name: Kemi Miller Age: 41 yrs Sex: Female : 1980 Arrival Date: 01/24/2022 Time: 13:30 Bed 5 Private MD: Diagnosis: Streptococcal pharyngitis;Acute bronchitis, unspecified;Upper abdominal pain, unspecified Presentation: 01/24 15:23 Chief complaint: Patient states: Right mid back pain, radiates to RUQ x 1 month. jl7 Coronavirus screen: At this time, the client does not indicate any symptoms associated with coronavirus-19. Ebola Screen: No symptoms or risks identified at this time. Initial Sepsis Screen: Does the patient meet any 2 criteria? No. Patient's initial sepsis screen is negative. Does the patient have a suspected source of infection? No. Patient's initial sepsis screen is negative. Risk Assessment: Do you want to hurt yourself or someone else? Patient reports no desire to harm self or others. Onset of symptoms was December 24, 2021. 15:23 Method Of Arrival: Ambulatory [facility] 15:23 Acuity: DOROTA 3 jl7 Triage Assessment: 15:30 General: Appears in no apparent distress. uncomfortable, Behavior is calm, cooperative, jl7 appropriate for age. Pain: Complains of pain in right mid back Pain radiates to right upper quadrant Pain currently is 8 out of 10 on a pain scale. Musculoskeletal: Swelling absent. [employer]: 15:30 LMP 01/24/2022 jl7 Historical: - Allergies: 15:30 Amoxicillin; jl7 15:30 PENICILLINS; jl7 - Home Meds: 15:30 None [Active]; jl7 - PMHx: 15:30 None; jl7 - PSHx: 15:30 Appendectomy; Cholecystectomy; jl7 - Immunization history:: Client reports receiving the 2nd dose of the Covid vaccine. - Social history:: Smoking status: Patient denies any tobacco usage or history of. Screenin:05 Abuse screen: Denies threats or abuse. Denies injuries from another. Nutritional tp1 screening: No deficits noted. Tuberculosis screening: No symptoms or risk factors identified. Fall Risk No fall in past 12 months (0 pts). No secondary diagnosis (0 pts). IV access (20 points). Ambulatory Aid- None/Bed Rest/Nurse Assist (0 pts). Gait- Normal/Bed Rest/Wheelchair (0 pts) Mental Status- Oriented to own ability (0 pts). Assessment: 16:20 General: Appears in no apparent distress. uncomfortable, Behavior is calm, cooperative. tp1 Pain: Complains of pain in ight upper quadrant and mid back on spine Pain does not radiate. Pain currently is 8 out of 10 on a pain scale. Quality of pain is described as dull, stabbing, Pain began about a month. Neuro: Level of Consciousness is awake, alert, obeys commands, Oriented to person, place, time, situation. Cardiovascular: Patient's skin is warm and dry. Respiratory: Airway is patent Respiratory effort is even, unlabored. GI: Abdomen is round non-distended, Abd is soft and non tender X 4 quads. Reports nausea, vomiting, Patient currently denies diarrhea. : No signs and/or symptoms were reported regarding the genitourinary system. EENT: No signs and/or symptoms were reported regarding the EENT system. Derm: No signs and/or symptoms reported regarding the dermatologic system. Musculoskeletal: Circulation, motion, and sensation intact. 17:27 Reassessment: Patient appears in no apparent distress at this time. No changes from tp1 previously documented assessment. Patient is alert, oriented x 3, equal unlabored respirations, skin warm/dry/pink. resting in bed with at bedside. 17:57 Reassessment: states felling much better, rates Pain 1/10. tp1 18:21 Reassessment: Patient appears in no apparent distress at this time. No changes from tp1 previously documented assessment. Patient is alert, oriented x 3, equal unlabored respirations, skin warm/dry/pink. resting in bed. Vital Signs: 15:23 BP 127 / 77; Pulse 74; Resp 17; Temp 98.2; Pulse Ox 100% ; Weight 72.57 kg; Height 5 jl7 ft. 2 in. (157.48 cm); Pain 8/10; 16:20 BP 136 / 88; Pulse 66; Resp 17; Pulse Ox 100% on R/A; tp1 17:28 BP 112 / 75; Pulse 55; Resp 17; Pulse Ox 100% on R/A; tp1 18:22 BP 121 / 73; Pulse 63; Resp 17; Pulse Ox 100% on R/A; tp1 20:09 BP 105 / 70; Pulse 65; Resp 16 S; Pulse Ox 100% on R/A; Pain 0/10; aa9 15:23 Body Mass Index 29.26 (72.57 kg, 157.48 cm) jl7 ED Course: 15:30 Arm band placed on right wrist. jl7 16:05 Belinda Crespo, RN is Primary Nurse. tp1 16:20 Patient has correct armband on for positive identification. Bed in low position. Call tp1 light in reach. Side rails up X 1. Adult w/ patient. 16:20 Pulse ox on. NIBP on. tp1 16:22 XRAY Chest Pa And Lat (2 Views) In Process Unspecified. EDMS 16:27 Inserted saline lock: 20 gauge in right antecubital area, using aseptic technique. tp1 Blood collected. 18:15 CT Abd/Pelvis - IV Contrast Only In Process Unspecified. EDMS 20:09 No provider procedures requiring assistance completed. IV discontinued, intact, aa9 bleeding controlled, No redness/swelling at site. Pressure dressing applied. Administered Medications: 16:28 Drug: Tussionex Pennkinetic ER (chlorpheniramine-hydrocodone) Suspension 5 ml Route: PO;tp1 18:00 Follow up: Response: Marked relief of symptoms tp1 17:24 Drug: NS 0.9% 1000 ml Route: IV; Rate: 125 ml/hr; Site: right antecubital; tp1 17:25 Drug: Ketorolac 15 mg Route: IVP; Site: right antecubital; tp1 17:59 Follow up: Response: Pain is decreased tp1 Medication: 17:05 VIS not applicable for this client. tp1 Outcome: 19:18 Discharge ordered by . gianna 20:09 Discharged to home ambulatory. aa9 20:09 Condition: stable 20:09 Discharge instructions given to patient, significant other, Instructed on discharge instructions, follow up and referral plans. medication usage, Demonstrated understanding of instructions, follow-up care, medications, Prescriptions given X 4. 20:10 Patient left the ED. aa9 Signatures: Dispatcher [employer] EDMS Saul Mercedes PA PA cp Garcia, Rubi rg4 Minnie Pérez RN RN jl7 Mago Hargrove RN RN bm7 Belinda Crespo RN RN tp1 Josette Villavicencio RN RN aa9 Corrections: (The following items were deleted from the chart) 15: 13:30 Patient arrived in ED. rg4 bm7 15: 15:11 Saul Mercdees PA is PHCP. cp bm7 15: 15:11 Saul Friedman MD is Attending Physician. cp bm7 15: 15:28 Triage completed. bm7 bm7 15: 15:26 BP 120 / 79; Pulse 90bpm; Resp 16bpm; Pulse Ox 100% RA; Temp 98.7F Temporal; bm7 65.32 kg Reported; Height 5 ft. 6 in.; BMI: 23.2; Pain 7/10; bm7 15: 15:26 LMP N/A - control method bm7 bm7 15: 15:26 Arm band placed on right wrist. bm7 bm7 15: 15:27 Chief complaint: Patient states: I started having really bad stomach pain bm7 yesterday and this morning I went to urgent care and they said I needed to come here insteatd. I have an appt with Dr. Cerda in the morning but I can't take the pain anymore bm7 15: 15:27 Note pt just stated that she had a colon yesterday at [facility] with biopsies bm7 bm7 15: 15:27 Coronavirus screen: At this time, the client does not indicate any symptoms bm7 associated with coronavirus-19. bm7 15: 15:27 Ebola Screen: No symptoms or risks identified at this time. bm7 bm7 : 15:27 Initial Sepsis Screen: Does the patient meet any 2 criteria? No. Patient's bm7 initial sepsis screen is negative. Does the patient have a suspected source of infection? No. Patient's initial sepsis screen is negative. bm7 15: 15:27 Risk Assessment: Do you want to hurt yourself or someone else? Patient reports no bm7 desire to harm self or others. bm7 15: 15:27 Onset of symptoms is unknown. bm7 bm7 15: 15:27 Method Of Arrival: Ambulatory bm7 bm7 15:27 Acuity: DOROTA 3 bm7 bm7
--- NOTE | 2022-01-24 19:19 | EDPHYS ---
Physician Documentation [facility] Name: Kemi Miller Age: 41 yrs Sex: Female : 1980 Arrival Date: 01/24/2022 Time: 13:30 Bed 5 Private MD: ED Physician Saul Friedman HPI: 01/24 16:05 This 41 yrs old Female presents to ER via Ambulatory with complaints of Cough, cp Back Pain, Abdominal Pain. 16:05 The patient or guardian reports cough, that is constant, with no sputum. Onset: The cp symptoms/episode began/occurred 1 month(s) ago. 16:05 Severity of symptoms: in the emergency department the symptoms are unchanged, despite cp home interventions. Associated signs and symptoms: Pertinent positives: chest pain, with cough, sore throat, right mid back pain radiating to right upper abdomen, Pertinent negatives: diarrhea, fever, vomiting. PERINATAL TECH: 15:30 LMP 01/24/2022 jl7 Historical: - Allergies: 15:30 Amoxicillin; jl7 15:30 PENICILLINS; jl7 - Home Meds: 15:30 None [Active]; jl7 - PMHx: 15:30 None; jl7 - PSHx: 15:30 Appendectomy; Cholecystectomy; jl7 - Immunization history:: Client reports receiving the 2nd dose of the Covid vaccine. - Social history:: Smoking status: Patient denies any tobacco usage or history of. ROS: 16:10 Constitutional: Negative for chills, fever, poor PO intake. cp 16:10 Eyes: Negative for injury, pain, redness, and discharge. cp 16:10 ENT: Positive for difficulty swallowing, sore throat, Negative for drainage from ear(s), ear pain, difficulty handling secretions. 16:10 Cardiovascular: Positive for chest pain, Negative for palpitations. 16:10 Abdomen/GI: Positive for abdominal pain, nausea, of the right upper quadrant, Negative for vomiting, diarrhea, constipation. 16:10 Back: Positive for pain at rest, pain with movement, of the right mid back. 16:10 : Negative for urinary symptoms. 16:10 Skin: Negative for rash. 16:10 Neuro: Negative for altered mental status, headache, weakness. 16:10 All other systems are negative. Exam: 16:15 Constitutional: The patient appears in no acute distress, alert, awake, cp non-diaphoretic, non-toxic, well developed, well nourished, uncomfortable. 16:15 Head/Face: Normocephalic, atraumatic. cp 16:15 Eyes: Periorbital structures: appear normal, Conjunctiva: normal, no exudate, no injection, Sclera: no appreciated abnormality, Lids and lashes: appear normal, bilaterally. 16:15 ENT: External ear(s): are unremarkable, Nose: is normal, Mouth: Lips: moist, Oral mucosa: moist, Posterior pharynx: Airway: no evidence of obstruction, patent, Tonsils: with erythema, no enlargement, no exudate, erythema, that is mild, exudate, is not appreciated. 16:15 Neck: ROM/movement: is normal, is supple, without pain, no range of motions limitations, no meningismus. 16:15 Chest/axilla: Inspection: normal, Palpation: is normal, no crepitus, no tenderness. 16:15 Cardiovascular: Rate: normal, Rhythm: regular. 16:15 Respiratory: the patient does not display signs of respiratory distress, Respirations: normal, no use of accessory muscles, no retractions, labored breathing, is not present, Breath sounds: decreased breath sounds, are not appreciated, stridor, is not appreciated, wheezing: is not appreciated. 16:15 Abdomen/GI: Inspection: abdomen appears normal, Bowel sounds: active, all quadrants, Palpation: soft, in all quadrants, moderate abdominal tenderness, in the right upper quadrant, rebound tenderness, is not appreciated, involuntary guarding, is not appreciated. 16:15 Back: pain, that is moderate, of the right mid back, ROM is normal. 16:15 Skin: cellulitis, is not appreciated, no rash present. 16:15 Neuro: Orientation: to person, place \\T\\ time. Mentation: is normal, Motor: moves all fours, strength is normal, Sensation: is normal, Gait: is steady, at a normal pace, without difficulty. Vital Signs: 15:23 BP 127 / 77; Pulse 74; Resp 17; Temp 98.2; Pulse Ox 100% ; Weight 72.57 kg; Height 5 jl7 ft. 2 in. (157.48 cm); Pain 8/10; 16:20 BP 136 / 88; Pulse 66; Resp 17; Pulse Ox 100% on R/A; tp1 17:28 BP 112 / 75; Pulse 55; Resp 17; Pulse Ox 100% on R/A; tp1 18:22 BP 121 / 73; Pulse 63; Resp 17; Pulse Ox 100% on R/A; tp1 20:09 BP 105 / 70; Pulse 65; Resp 16 S; Pulse Ox 100% on R/A; Pain 0/10; aa9 15:23 Body Mass Index 29.26 (72.57 kg, 157.48 cm) jl7 MDM: 16:01 Patient medically screened. cp 19:18 Data reviewed: vital signs, nurses notes, lab test result(s), radiologic studies, CT cp scan, plain films. 19:18 Differential Diagnosis: Bronchitis Influenza Pharyngitis Viral Syndrome Pneumonia. cp Counseling: I had a detailed discussion with the patient and/or guardian regarding: the historical points, exam findings, and any diagnostic results supporting the discharge/admit diagnosis, lab results, radiology results, the need for outpatient follow up, a family practitioner, to return to the emergency department if symptoms worsen or persist or if there are any questions or concerns that arise at home. Response to treatment: the patient's symptoms have markedly improved after treatment, and as a result, I will discharge patient. Special discussion: Based on the patient's Hx, exam, and Dx evaluation, there is no indication for emergent surgery or inpatient Tx. It is understood by the patient/guardian that if the Sx's persist or worsen they need to return immediately for re-evaluation. 01/24 15:54 Order name: CBC with Diff; Complete Time: 17:49 cp 01/24 15:54 Order name: CMP; Complete Time: 17:49 cp 01/24 17:49 Interpretation: Normal except: AST 8; GLOB 4.4; A/G 0.9. 01/24 15:54 Order name: Lipase; Complete Time: 17:49 cp 01/24 15:54 Order name: Urine Microscopic Only; Complete Time: 17:49 cp 01/24 17:50 Interpretation: Abnormal: URBC >50. 01/24 15:55 Order name: COVID-19 SARS RT PCR (Document "Date of Onset" if Symptomatic); Complete cp Time: 17:49 01/24 15:55 Order name: Strep; Complete Time: 17:49 cp 01/24 17:50 Interpretation: Reviewed. cp 01/24 15:54 Order name: IV Saline Lock; Complete Time: 18:00 cp 01/24 15:55 Order name: XRAY Chest Pa And Lat (2 Views); Complete Time: 16:32 cp 01/24 16:30 Order name: Urine Dipstick-Ancillary; Complete Time: 16:32 EDMS 01/24 16:32 Interpretation: Normal except: UBLD 2+. cp 01/24 16:34 Order name: CT Abd/Pelvis - IV Contrast Only; Complete Time: 19:13 cp 01/24 16:35 Order name: Urine --Ancillary (enter results) bd 01/24 15:54 Order name: Labs collected and sent; Complete Time: 18:00 cp Administered Medications: 16:28 Drug: Tussionex Pennkinetic ER (chlorpheniramine-hydrocodone) Suspension 5 ml Route: PO;tp1 18:00 Follow up: Response: Marked relief of symptoms tp1 17:24 Drug: NS 0.9% 1000 ml Route: IV; Rate: 125 ml/hr; Site: right antecubital; tp1 17:25 Drug: Ketorolac 15 mg Route: IVP; Site: right antecubital; tp1 17:59 Follow up: Response: Pain is decreased tp1 Disposition Summary: 01/24/22 19:18 Discharge Ordered Location: Home cp Problem: new cp Symptoms: have improved cp Condition: Stable cp Diagnosis - Streptococcal pharyngitis cp - Acute bronchitis, unspecified cp - Upper abdominal pain, unspecified cp Followup: cp - With: Private Physician - When: 2 - 3 days - Reason: Worsening of condition Discharge Instructions: - Discharge Summary Sheet cp - Abdominal Pain, Adult cp - Acute Bronchitis, Adult cp - Strep Throat, Adult cp Forms: - Medication Reconciliation Form cp - Thank You Letter cp - Antibiotic Education cp - Prescription Opioid Use cp Prescriptions: - clarithromycin 500 mg Oral tablet - take 1 tablet by ORAL route every 12 hours for 10 days; 20 tablet; Refills: 0, cp Product Selection Permitted - Ibuprofen 800 mg Oral Tablet - take 1 tablet by ORAL route every 8 hours As needed take with food; 30 tablet; cp Refills: 0, Product Selection Permitted - Guaifenesin AC 10-100 mg/5 mL Oral Liquid - take 10 milliliters by ORAL route every 6 hours As needed; 180 milliliter; cp Refills: 0, Product Selection Permitted - Zofran 4 mg Oral Tablet - take 1 tablet by ORAL route every 12 hours As needed; 20 tablet; Refills: 0, cp Product Selection Permitted Signatures: Dispatcher [employer] EDSaul Pena PA PA cp Leal, Jahala, RN RN jl7 Belinda Crespo RN RN tp1 Corrections: (The following items were deleted from the chart) 17:50 17:49 Normal except. cp cp
[2022-01-24 22:26] LABS: Urine Specific Gravity/Preg 1.025 (1.005-1.030)
[2022-01-25 08:48] VITALS: TEMP 98.2; O2SAT 100
[2022-01-25 08:57] VITALS: BP 105/70
== END 2022-01-24 20:10 | disposition home or self-care (01) ==
LOC: ER 13:26
DX: J02.0 Streptococcal pharyngitis (principal); J20.9 Acute bronchitis, unspecified; R10.10 Upper abdominal pain, unspecified; Z20.822 Contact with and (suspected) exposure to COVID-19; Z88.0 Allergy status to penicillin; Z88.1 Allergy status to other antibiotic agents
CPT/HCPCS: 36415; 71046; 74177; 80053; 81003; 81015; 81025; 83690; 85025; 87081; 96374; 99284; J7030; Q9967; U0003

== ENCOUNTER 2024-09-09 14:55 | Emergency (ER) | payer SELFPAY ==
--- OUTSIDE RECORDS SUMMARY | 2024-09-09 15:00 | XMS REPORT | Continuity of Care Document ---
Author Name Unknown Address [address] [facility] [address] [place] [address] [facility] Address [address] [facility] [address] [place] [address] Care Team Providers Care Audit Mgr Name Role Phone Ivan Awad Primary Care Physician [phone] JUDITH LENTZ Attending Clinician UnavailJudith Leon DO Attending Clinician [phone] ALLI HALLMAN Attending Clinician Unavailab TAMIKA Smith Attending Clinician Unavailable Tamika Alvarez MD Attending Clinician [phone] Doctor Unassigned, [place] Attending Clinician U WIL Michele Attending Clinician Unavailable TAMIKA ALVAREZ Admitting Clinician Unavailable Payers Payer Name Policy Type Policy Number Effective Date Expirati on Date Source Problems Condition Name Condition Details Condition Category Status Onset Date Resolution Date Last Treatment Date Treating Clinician Comments Source Obesity (BMI 30-39.9) Obesity (BMI 30-39.9) Disease Active 8- 00:00: 00 [facility] Flatulence , eructation , and gas pain Flatulence , eructation , and gas pain Disease Active 10-31 00:00: 00 Overview: Formattin g of this note might be different from the original. Added automatic ally from request for surgery [id number] [facility] Abdominal pain, epigastric Abdominal pain, epigastric Disease Active 10-31 00:00: 00 Overview: Formattin g of this note might be different from the original. Added automatic ally from request for surgery [id number] [facility] Dysphagia, pharyngoes ophageal phase Dysphagia, pharyngoes ophageal phase Disease Active 10-31 00:00: 00 Overview: Formattin g of this note might be different from the original. Added automatic ally from request for surgery [id number] [facility] Nausea and vomiting in adult Nausea and vomiting in adult Disease Active 10-31 00:00: 00 Overview: Formattin g of this note might be different from the original. Added automatic ally from request for surgery [id number] [facility] Breast pain Breast pain Disease Active 02-06 00:00: 00 [facility] UTI symptoms UTI symptoms Disease Active 01-26 00:00: 00 [facility] Well woman exam Well woman exam Disease Active 01-31 00:00: 00 [facility] Right adnexal tenderness Right adnexal tenderness Disease Active 01-31 00:00: 00 [facility] Over weight Over weight Disease Active 01-31 00:00: 00 [facility] Allergies, Adverse Reactions, Alerts Allergy Name Allergy Type Status Severity Reaction(s) Onset Date Inactive Date Treating Clinician Comments Source Amoxicil lola - Oral Propensi ty to adverse reaction to drug Active 01-13 00:00: 00 Jairo Castellanos AMOXICIL LOLA DRUG INGREDI Active Med Rash 01-26 00:00: 00 [facility] Amoxicil lola Propensi ty to adverse reaction s Active Rash 01-26 00:00: 00 [facility] Amoxicil lola Propensi ty to adverse reaction to drug Inactiv e 07-14 00:00: 00 Jairo Castellanos Social History Social Habit Start Date Stop Date Quantity Comments Source History SDOH Alcohol Frequency [facility] History SDOH Alcohol Std Drinks [facility] History SDOH Alcohol Binge [facility] Exposure to SARS-CoV-2 (event) Not sure [facility] Alcohol intake 2022-01-18 00:00:00 2022-01-18 00:00:00 Current non-drinker of alcohol (finding) [facility] Alcohol Comment 2017-10-31 00:00:00 2017-10-31 00:00:00 social [facility] Sex Assigned At 1980 00:00:00 1980 00:00:00 [facility] Smoking Status Start Date Stop Date Source Never smoked tobacco [facility] Medications Ordered Medication Name Filled Medication Name Start Date Stop Date Current Medication? Ordering Clinician Indication Dosage Frequency Signature (SIG) Comments Components Source albuterol sulfate HFA 90 mcg/actuati on aerosol inhaler 09-04 00:00: 00 Yes 12mcg/a ctuatio n Jairo Castellanos cetirizine 10 mg tablet 09-04 00:00: 00 Yes 1mg Jairo Castellanos benzonatate 200 mg capsule 09-04 00:00: 00 Yes 1mg Jairo Castellanos albuterol sulfate HFA 90 mcg/actuati on aerosol inhaler 11-12 00:00: 00 Yes 12mcg/a ctuatio n Jairo Castellanos levofloxaci n 500 mg tablet 11-12 00:00: 00 Yes 1mg Jairo Castellanos benzonatate 100 mg capsule 11-12 00:00: 00 Yes 12mg Jairo Castellanos Flonase Allergy Relief 50 mcg/actuati on nasal spray,suspe nsion 10-29 00:00: 00 Yes 12mcg/a ctuatio marcelle Jairo Castellanos doxycycline hyclate 100 mg capsule 10-29 00:00: 00 Yes 1mg Jairo Castellanos Bromfed DM 2 mg-30 mg-10 mg/5 mL oral syrup 10-29 00:00: 00 Yes 10mg/5 mL Jairo Castellanos TAKE 1 TABLET EVERY 6 HOURS NEEDED FOR DIZZINESS. 30 00:00: 00 08-27 00:00 :00 No 25 Jairo Collins Castellanos TAKE 1 TABLET BY MOUTH AT BEDTIME 08-29 00:00: 00 Yes Jairo Collins Castellanos TAKE 1 TABLET BY MOUTH EVERY DAY AT BEDTIME 2023-0 4-18 00:00: 00 Yes Jairo Castellanos TAKE 1 CAPSULE TWICE DAILY. 08-03 00:00: 00 08-27 00:00 :00 No 100 Jairo Castellanos TAKE 1 TABLET 3 TIMES DAILY WITH FOOD NEEDED. 08-03 00:00: 00 08-27 00:00 :00 No 800 Jairo Castellanos TAKE 1 TABLET BY MOUTH EVERY 12 HOURS NEEDED 01-24 00:00: 00 Yes Jairo Castellanos TAKE 1 TABLET BY MOUTH EVERY 8 HOURS NEEDED FOR PAIN TAKE WITH FOOD 01-24 00:00: 00 08-27 00:00 :00 No Jairo Castellanos TAKE 1 TABLET BY MOUTH EVERY 12 HOURS FOR 10 DAYS 08-13 00:00: 00 Yes Jairo Castellanos TAKE 10 MILLILITER BY MOUTH EVERY 6 HOURS 08-12 00:00: 00 Yes Jairo Castellanos maalox:diph enhydrAMINE :lidocaine 2 % viscous 1:1:1 (FIRST-MOUT HWASH BLM) oral suspension 15 mL 2020-05 04:45: 00 04-12 03:45 :00 No 15mL 15 mL, Oral, ONCE, 1 dose, On Sun04/11/21 at 2245, [facility] pantoprazol e (PROTONIX) injection 40 mg 2020-05 04:00: 00 04-12 02:57 :00 No 40mg 40 mg, Slow IV Push, ONCE, 1 dose, On Sun04/11/21 at 2200 [facility] morpHINE injection 4 mg 2020-05 02:30: 00 04-12 01:46 :00 No 4mg 4 mg, Slow IV Push, ONCE, 1 dose, On Sun04/11/21 at 2030, STAT [facility] ondansetron (ZOFRAN (PF)) injection 4 mg 2020-05 02:30: 00 04-12 01:46 :00 No 4mg 4 mg, Slow IV Push, ONCE, 1 dose, On Sun04/11/21 at 2030, [facility] NaCl 0.9% (NS) bolus infusion 1,000 mL 2020-05 02:30: 00 04-12 02:30 :00 No 1000mL at 999 mL/hr, 1,000 mL, IV Infusion, ONCE, 1 dose, On Sun04/11/21 at 2030, NEGIN [facility] FENTanyl PF (SUBLIMAZE (PF)) injection 100 mcg 2020-05 02:26: 00 04-12 02:29 :00 No 100ug 100 mcg, Slow IV Push, ONCE, 1 dose, On Sun04/11/21 at 2030, Routine [facility] metoclopram cherry HCl (REGLAN) injection 10 mg 2020-05 02:26: 00 04-12 02:29 :00 No 10mg 10 mg, Slow IV Push, ONCE, 1 dose, On Sun04/11/21 at 2030, NEGIN [facility] dicyclomine 20 mg tablet 2020-05 00:00: 00 Yes [id number] 20mg Take 1 tablet by mouth 4 (four) times daily. [facility] ondansetron 4 mg disintegrat ing tablet 2020-05 00:00: 00 Yes [id number] 4mg Take 1 tablet by mouth every 4 (four) hours as needed for Nausea and Vomiting (N/V). [facility] sucralfate 1 gram tablet 2020-05 00:00: 00 Yes [id number] 1g Take 1 tablet by mouth before meals and at bedtime. [facility] pantoprazol e 40 mg EC tablet 2020-05 00:00: 00 Yes [id number] 40mg Take 1 tablet by mouth daily. [facility] albuterol 90 mcg/actuati on inhaler 12-11 00:00: 00 Yes [id number] 2{puff} Inhale 2 Puffs every 4 (four) hours as needed for Wheezing or Shortness of Breath. [facility] benzonatate 100 mg capsule 12-11 00:00: 00 Yes [id number] 200mg Take 2 capsules by mouth 3 (three) times daily as needed for Cough. [facility] Bactrim DS 800 mg-160 mg tablet 11-11 00:00: 00 Yes 1mg Jairo Castellanos ibuprofen 600 mg tablet 11-11 00:00: 00 Yes 1mg Jairo Castellanos ibuprofen 600 mg tablet 09-08 00:00: 00 Yes 1mg Jairo Castellanos prednisone 20 mg tablet 01-25 00:00: 00 Yes mg Jairo Castellanos prednisone 5 mg tablet 01-25 00:00: 00 Yes mg Jairo Castellanos amoxicillin 875 mg-potassiu joel clavulanate 125 mg tablet 01-21 00:00: 00 Yes 1mg Jairo Castellanos prednisone 20 mg tablet 01-21 00:00: 00 Yes mg Jairo Castellanos Macrobid 100 mg capsule 11-02 00:00: 00 Yes 1mg Jairo Castellanos azithromyci n 250 mg tablet 08-07 00:00: 00 Yes mg Jairo Castellanos prednisone 20 mg tablet 08-07 00:00: 00 Yes mg Jairo Castellanos omeprazole 20 mg capsule,del ayed release 08-07 00:00: 00 Yes 1mg Jairo Castellanos benzonatate 200 mg capsule 08-07 00:00: 00 Yes 1mg Jairo Castellanos promethazin e-DM 6.25 mg-15 mg/5 mL oral syrup 08-07 00:00: 00 Yes 5mg/5 mL Jairo Castellanos clarithromy mahesh 500 mg tablet 07-15 00:00: 00 Yes 1mg Jairo Castellanos clarithromy mahesh 500 mg tablet 07-14 00:00: 00 Yes 1mg Jairo Castellanos clarithromy mahesh 500 mg tablet 07-11 00:00: 00 Yes 1mg Jairo Castellanos amoxicillin 500 mg capsule 07-11 00:00: 00 Yes 2mg Jairo Castellanos Vital Signs Vital Name Observation Time Observation Value Comments S joseph Systolic blood pressure 2022-01-18 18:35:00 155 mm[Hg] [facility] Diastolic blood pressure 2022-01-18 18:35:00 95 mm[Hg] [facility] Heart rate 2022-01-18 18:35:00 73 /min Unive [facility] Body temperature 2022-01-18 18:35:00 36.28 Fawn [facility] Respiratory rate 2022-01-18 18:35:00 18 /min [facility] Body weight 2022-01-18 18:35:00 74.844 kg [facility] BMI 2022-01-18 18:35:00 30.18 kg/m2 [facility] Oxygen saturation in Arterial blood by Pulse oximetry 2022-01-18 18:35:00 100 /min [facility] Systolic blood pressure 2021-04-12 05:01:00 105 mm[Hg] [facility] Diastolic blood pressure 2021-04-12 05:01:00 68 mm[Hg] [facility] Heart rate 2021-04-12 05:01:00 77 /min [facility] Respiratory rate 2021-04-12 05:01:00 16 /min [facility] Oxygen saturation in Arterial blood by Pulse oximetry 2021-04-12 05:01:00 99 /min [facility] Body height 2021-04-12 00:59:00 157.5 cm [facility] Body weight 2021-04-12 00:59:00 74.844 kg [facility] BMI 2021-04-12 00:59:00 30.18 kg/m2 [facility] Body temperature 2021-04-12 00:59:00 37.72 Fawn [facility] BP Systolic 2024-09-04 15:12:00 118 mm[Hg] Step evelyn Castellanos BP Diastolic 2024-09-04 15:12:00 85 mm[Hg] Luis phen F Emanuel Weight Measured 2024-09-04 15:12:00 167.60 pounds Jairo Castellanos Height Measured 2024-09-04 15:12:00 63.98 inches Jairoevelyn Castellanos Body Temperature 2024-09-04 15:12:00 99.50 degrees Jairo Collins Castellanos Heart Rate 2024-09-04 15:12:00 81.00 /min Bernadine en F Emanuel Respiratory Rate 2024-09-04 15:12:00 18.00 /min Jairo F Emanuel BP Systolic 2023-11-13 14:33:00 128 mm[Hg] Step hen F Emanuel BP Diastolic 2023-11-13 14:33:00 82 mm[Hg] Luis phen F Emanuel Weight Measured 2023-11-13 14:33:00 173.20 pounds Jairo F Emanuel Height Measured 2023-11-13 14:33:00 63.98 inches Jairo F Emanuel Body Temperature 2023-11-13 14:33:00 98.40 degrees Jairo F Emanuel Heart Rate 2023-11-13 14:33:00 62.00 /min Bernadine en F Emanuel Respiratory Rate 2023-11-13 14:33:00 17.00 /min Jairo F Emanuel Weight Measured 2023-10-30 10:20:00 175.20 pounds Jairo F Emanuel Height Measured 2023-10-30 10:20:00 63.98 inches Jairo F Emanuel Body Temperature 2023-10-30 10:20:00 98.20 degrees Jairo F Emanuel Heart Rate 2023-10-30 10:20:00 72.00 /min Bernadine en F Emanuel Respiratory Rate 2023-10-30 10:20:00 17.00 /min Jairo F Emanuel BP Systolic 2023-10-30 10:20:00 130 mm[Hg] Step hen F Emanuel BP Diastolic 2023-10-30 10:20:00 84 mm[Hg] Luis phen F Emanuel BP Systolic 2023-06-12 14:00:00 123 mm[Hg] Step hen F Emanuel BP Diastolic 2023-06-12 14:00:00 79 mm[Hg] Luis phen F Emanuel Weight Measured 2023-06-12 14:00:00 174.00 pounds Jairo F Emanuel Height Measured 2023-06-12 14:00:00 63.98 inches Jairo F Emanuel Body Temperature 2023-06-12 14:00:00 98.20 degrees Jairo F Emanuel Heart Rate 2023-06-12 14:00:00 70.00 /min Bernadine en F Emanuel Respiratory Rate 2023-06-12 14:00:00 17.00 /min Jairo F Emanuel BP Systolic 2023-06-07 17:11:00 112 mm[Hg] Step hen F Emanuel BP Diastolic 2023-06-07 17:11:00 76 mm[Hg] Luis phen F Emanuel Weight Measured 2023-06-07 17:11:00 174.20 pounds Jairo F Emanuel Height Measured 2023-06-07 17:11:00 63.98 inches Jairo F Emanuel Body Temperature 2023-06-07 17:11:00 98.30 degrees Jairo F Emanuel Heart Rate 2023-06-07 17:11:00 74.00 /min Bernadine en F Emanuel Respiratory Rate 2023-06-07 17:11:00 17.00 /min Jairo F Emanuel BP Systolic 2022-08-03 08:31:00 94 mm[Hg] Step hen F Emanuel BP Diastolic 2022-08-03 08:31:00 66 mm[Hg] Luis phen F Emanuel Weight Measured 2022-08-03 08:31:00 164.40 pounds Jairo F Emanuel Height Measured 2022-08-03 08:31:00 63.98 inches Jairo F Emanuel Body Temperature 2022-08-03 08:31:00 97.40 degrees Jairo F Emanuel Heart Rate 2022-08-03 08:31:00 79.00 /min Bernadine en F Emanuel Respiratory Rate 2022-08-03 08:31:00 25.00 /min Jairo F Emanuel BP Systolic 2020-11-11 16:09:00 136 mm[Hg] Step hen F Emanuel BP Diastolic 2020-11-11 16:09:00 90 mm[Hg] Luis phen F Emanuel Weight Measured 2020-11-11 16:09:00 169.80 pounds Jairo F Emanuel Height Measured 2020-11-11 16:09:00 63.98 inches Jairo F Emanuel Body Temperature 2020-11-11 16:09:00 98.60 degrees Jairo F Emanuel Heart Rate 2020-11-11 16:09:00 71.00 /min Bernadine en F Emanuel Respiratory Rate 2020-11-11 16:09:00 17.00 /min Jairo F Emanuel BP Systolic 2020-09-02 11:38:00 134 mm[Hg] Step hen F Emanuel BP Diastolic 2020-09-02 11:38:00 88 mm[Hg] Luis phen F Emanuel Weight Measured 2020-09-02 11:38:00 169.40 pounds Jairo F Emanuel Height Measured 2020-09-02 11:38:00 63.98 inches Jairo F Emanuel Body Temperature 2020-09-02 11:38:00 98.30 degrees Jairo F Emanuel Heart Rate 2020-09-02 11:38:00 82.00 /min Bernadine en F Emanuel Respiratory Rate 2020-09-02 11:38:00 17.00 /min Jairo F Emanuel BP Systolic 2019-01-24 13:17:00 135 mm[Hg] Step hen F Emanuel BP Diastolic 2019-01-24 13:17:00 84 mm[Hg] Luis phen F Emanuel Weight Measured 2019-01-24 13:17:00 170.00 pounds Jairo F Emanuel Height Measured 2019-01-24 13:17:00 64.00 inches Jairo F Emanuel Body Temperature 2019-01-24 13:17:00 98.50 degrees Jairo F Emanuel Heart Rate 2019-01-24 13:17:00 74.00 /min Bernadine en F Emanuel Respiratory Rate 2019-01-24 13:17:00 16.00 /min Jairo F Emanuel BP Systolic 2019-01-21 13:54:00 101 mm[Hg] Step hen F Emanuel BP Diastolic 2019-01-21 13:54:00 70 mm[Hg] Luis phen F Emanuel Weight Measured 2019-01-21 13:54:00 170.00 pounds Jairo F Emanuel Height Measured 2019-01-21 13:54:00 64.00 inches Jairo F Emanuel Body Temperature 2019-01-21 13:54:00 99.10 degrees Jairo F Emanuel Heart Rate 2019-01-21 13:54:00 75.00 /min Bernadine en F Emanuel Respiratory Rate 2019-01-21 13:54:00 17.00 /min Jairo F Emanuel BP Systolic 2018-11-02 08:42:00 111 mm[Hg] Step hen F Emanuel BP Diastolic 2018-11-02 08:42:00 73 mm[Hg] Luis phen F Emanuel Weight Measured 2018-11-02 08:42:00 170.40 pounds Jairo F Emanuel Height Measured 2018-11-02 08:42:00 64.00 inches Jairo F Emanuel Body Temperature 2018-11-02 08:42:00 98.10 degrees Jairo Castellanos Heart Rate 2018-11-02 08:42:00 74.00 /min Bernadine en F Emanuel Respiratory Rate 2018-11-02 08:42:00 17.00 /min Jairo Castellanos BP Systolic 2018-08-07 09:19:00 122 mm[Hg] Joon Castellanos BP Diastolic 2018-08-07 09:19:00 78 mm[Hg] Luis Castellanos Weight Measured 2018-08-07 09:19:00 170.80 pounds Jairo Castellanos Height Measured 2018-08-07 09:19:00 64.00 inches Jairo Castellanos Body Temperature 2018-08-07 09:19:00 98.40 degrees Jairo Castellanos Heart Rate 2018-08-07 09:19:00 73.00 /min Bernadine en F Emanuel Respiratory Rate 2018-08-07 09:19:00 18.00 /min Jairo Castellanos Procedures Procedure Date / Time Performed Performing Clinician Source COMP. METABOLIC PANEL (76035) 2022-01-18 19:01:00 Judith Lentz [facility] CBC WITH DIFF 2022-01-18 19:01:00 Judith Lentz [facility] POCT TEST 2022-01-18 18:59:00 Selina Lentz ra [facility] NOTICE OF PRIVACY PRACTICES 2022-01-18 18:33:33 Doctor Unassigned, [place] [facility] CONSENT/REFUSAL FOR DIAGNOSIS AND TREATMENT 2022-01-18 18:33:12 Doctor Unassigned, [place] [facility] CT ABDOMEN PELVIS WO CONTRAST 2021-04-12 02:19:08 Tamika Alvarez [facility] LIPASE 2021-04-12 01:49:00 Tamika Alvarez [facility] COMP. METABOLIC PANEL ([id number]) 2021-04-12 01:49:00 Tamika Alvarez [facility] CBC WITH DIFF 2021-04-12 01:49:00 Tamika Alvarez [facility] PROTHROMBIN TIME / INR 2021-04-12 01:49:00 Robert Alvarez [facility] ACTIVATED PARTIAL THRMPLAS EVA 2021-04-12 01:49:00 Tamika Alvarez [facility] URINALYSIS 2021-04-12 01:49:00 Tamika Alvarez [facility] COVID-19 (ID NOW RAPID TESTING) 2021-04-12 01:49:00 Tamika Alvarez [facility] POCT TEST 2021-04-12 01:48:00 Melissa Alvarez [facility] CONSENT/REFUSAL FOR DIAGNOSIS AND TREATMENT 2021-04-12 00:45:07 Doctor Unassigned, [place] [facility] [id number] Ecg Routine Ecg W/least 12 Lds W/i r 2016-07-11 00:00:00 Jairo Castellanos Encounters Start Date/Time End Date/Time Encounter Type Admission Type Attending [facility] Care Facility Care Department Encounter ID Source 2021-03-14 12:11:44 Emergency [facility] [id number] [facility] 2024-09-04 15:00:25 2024-09-04 15:00:25 Outpatient [facility] [id number] Jairo Castellanos 2024-09-04 00:00:00 2024-09-04 00:00:00 Outpatient Visit [facility] [id number] Jairo Castellanos 2023-11-14 11:40:58 2023-11-14 11:40:58 Outpatient [facility] [id number] Jairo Castellanos 2023-11-13 14:30:00 2023-11-13 14:30:00 Outpatient [facility] [id number] Jairo Castellanos 2023-11-13 00:00:00 2023-11-13 00:00:00 Outpatient Visit [facility] [id number] Jairo Castellanos 2023-10-30 10:12:16 2023-10-30 10:12:16 Outpatient SFA [facility] [id number] Jairo Castellanos 2023-10-30 00:00:00 2023-10-30 00:00:00 Outpatient Visit [facility] [id number] Jairo Castellanos 2023-06-12 13:54:48 2023-06-12 13:54:48 Outpatient [facility] [id number] Jairo Castellanos 2023-06-07 17:00:58 2023-06-07 17:00:58 Outpatient [facility] [id number] Jairo Castellaons 2022-08-03 08:20:05 2022-08-03 08:20:05 Outpatient [facility] [id number] Jairo Castellanos 2022-01-18 13:36:00 2022-01-18 15:27:00 Emergency X JUDITH LENTZ [facility] ERT [id number] [facility] 2022-01-18 13:36:00 2022-01-18 15:27:00 Emergency Judith Lentz [facility] 1..840.114 [id number] [facility] 2021-07-20 15:00:00 2021-07-20 15:00:00 Outpatient ALLI ROBIN [facility] [id number] [facility] 2021-04-11 19:07:00 2021-04-11 23:10:00 Emergency X TAMIKA ALVAREZ [facility] ERT [id number] [facility] 2021-04-11 19:07:00 2021-04-11 23:10:00 Emergency Tamika Alvarez [facility] 1..840.114 [id number] [facility] 2021-04-11 00:00:00 2021-04-11 00:00:00 Orders Only Doctor Unassigned, [place] [facility] 1..840.114 [id number] [facility] 2020-10-04 10:30:00 2020-10-04 10:30:00 Outpatient WIL [facility] [id number] [facility] Results Test Description Test Time Test Comments Results Result Co mments Source CBC W/AUTO DIFF WITH [id number] 02:18:25* Test Item Value Reference Range Interpretation Comme nts WBC (test code = 1001) 6.5 K/UL 3.5-11.0 RBC (test code = 1002) 4.29 M/UL 3.80-5.40 HEMOGLOBIN (test code = 1003) 12.5 G/DL 11.5-15.5 HEMATOCRIT (test code = 1004) 38.2 % 34.0-45.0 MCV (test code = 1005) 89.0 fL 80.0-99.0 MCH (test code = 1006) 29.1 PG 25.0-33.0 MCHC (test code = 1007) 32.7 G/DL 31.0-36.0 RDW (test code = 1038) 12.8 % 11.5-15.0 NEUTROPHILS (test code = 1008) 53.2 % LYMPHOCYTES (test code = 1010) 36.7 % MONOCYTES (test code = 1011) 7.6 % EOSINOPHILS (test code = 1012) 2.0 % BASOPHILS (test code = 1013) 0.3 % IMMATURE GRANULOCYTES (test code = 1036) 0.2 % NUCLEATED RBCS (test code = 1065) 0.0 /100 WBC'S See_Comment [Automated [employer] ge] The system which generated this result transmitted reference range: 0.0. The reference range was not used to interpret this result as normal/abnormal. PLATELET COUNT (test code = 1015) 238 K/UL 130-400 ABSOLUTE NEUTROPHILS (test code = 1066) 3.46 K/UL 1.50-7.50 ABSOLUTE LYMPHOCYTES (test code = 1067) 2.38 K/UL 1.00-4.00 ABSOLUTE MONOCYTES (test code = 1068) 0.49 K/UL 0.20-1.00 ABSOLUTE EOSINOPHILS (test code = 1040) 0.13 K/UL 0.00-0.50 ABSOLUTE BASOPHILS (test code = 1069) 0.02 K/UL 0.00-0.20 ABS IMMATURE GRANULOCYTES (test code = 1020) 0.01 K/UL 0.00-0.10 ABS NUCLEATED RBCS (test code = 76734) 0.00 K/UL 0.00-0.11 CBC W/AUTO [id number] 00:00:00* Test Item Value Reference Range Interpretation Comme nts WBC (test code = 1001) 6.5 K/UL RBC (test code = 1002) 4.29 M/UL HEMOGLOBIN (test code = 1003) 12.5 G/DL HEMATOCRIT (test code = 1004) 38.2 % MCV (test code = 1005) 89.0 fL MCH (test code = 1006) 29.1 PG MCHC (test code = 1007) 32.7 G/DL RDW (test code = 1038) 12.8 % NEUTROPHILS (test code = 1008) 53.2 % LYMPHOCYTES (test code = 1010) 36.7 % MONOCYTES (test code = 1011) 7.6 % EOSINOPHILS (test code = 1012) 2.0 % BASOPHILS (test code = 1013) 0.3 % IMMATURE GRANULOCYTES (test code = 1036) 0.2 % NUCLEATED RBCS (test code = 1065) 0.0 /100WBC'S PLATELET COUNT (test code = 1015) 238 K/UL ABSOLUTE NEUTROPHILS (test c ode = 1066) 3.46 K/UL ABSOLUTE LYMPHOCYTES (test c ode = 1067) 2.38 K/UL ABSOLUTE MONOCYTES (test cod e = 1068) 0.49 K/UL ABSOLUTE EOSINOPHILS (test c ode = 1040) 0.13 K/UL ABSOLUTE BASOPHILS (test cod e = 1069) 0.02 K/UL ABS IMMATURE GRANULOCYTES (t est code = 1020) 0.01 K/UL ABS NUCLEATED RBCS (test cod e = 94907) 0.00 K/UL Jairo CastellanosSRI, THIRD [id number] 00:00:00* Test Item Value Reference Range Interpretation Comme nts TSH, THIRD GENERATION (test code = 2821) 0.811 UIU/ML Jairo CastellanosCBC W/AUTO [id number] 00:00:00* Test Item Value Reference Range Interpretation Comme nts WBC (test code = 1001) 6.5 K/UL RBC (test code = 1002) 4.29 M/UL HEMOGLOBIN (test code = 1003) 12.5 G/DL HEMATOCRIT (test code = 1004) 38.2 % MCV (test code = 1005) 89.0 fL MCH (test code = 1006) 29.1 PG MCHC (test code = 1007) 32.7 G/DL RDW (test code = 1038) 12.8 % NEUTROPHILS (test code = 1008) 53.2 % LYMPHOCYTES (test code = 1010) 36.7 % MONOCYTES (test code = 1011) 7.6 % EOSINOPHILS (test code = 1012) 2.0 % BASOPHILS (test code = 1013) 0.3 % IMMATURE GRANULOCYTES (test code = 1036) 0.2 % NUCLEATED RBCS (test code = 1065) 0.0 /100WBC'S PLATELET COUNT (test code = 1015) 238 K/UL ABSOLUTE NEUTROPHILS (test c ode = 1066) 3.46 K/UL ABSOLUTE LYMPHOCYTES (test c ode = 1067) 2.38 K/UL ABSOLUTE MONOCYTES (test cod e = 1068) 0.49 K/UL ABSOLUTE EOSINOPHILS (test c ode = 1040) 0.13 K/UL ABSOLUTE BASOPHILS (test cod e = 1069) 0.02 K/UL ABS IMMATURE GRANULOCYTES (t est code = 1020) 0.01 K/UL ABS NUCLEATED RBCS (test cod e = 05949) 0.00 K/UL Jairo Guadalupe Zoila, THIRD [id number] 00:00:00* Test Item Value Reference Range Interpretation Comme nts TSH, THIRD GENERATION (test code = 2821) 0.811 UIU/ML Jairo Guadalupe EmanuelCBC W/AUTO [id number] 00:00:00* Test Item Value Reference Range Interpretation Comme nts WBC (test code = 1001) 6.5 K/UL RBC (test code = 1002) 4.29 M/UL HEMOGLOBIN (test code = 1003) 12.5 G/DL HEMATOCRIT (test code = 1004) 38.2 % MCV (test code = 1005) 89.0 fL MCH (test code = 1006) 29.1 PG MCHC (test code = 1007) 32.7 G/DL RDW (test code = 1038) 12.8 % NEUTROPHILS (test code = 1008) 53.2 % LYMPHOCYTES (test code = 1010) 36.7 % MONOCYTES (test code = 1011) 7.6 % EOSINOPHILS (test code = 1012) 2.0 % BASOPHILS (test code = 1013) 0.3 % IMMATURE GRANULOCYTES (test code = 1036) 0.2 % NUCLEATED RBCS (test code = 1065) 0.0 /100WBC'S PLATELET COUNT (test code = 1015) 238 K/UL ABSOLUTE NEUTROPHILS (test c ode = 1066) 3.46 K/UL ABSOLUTE LYMPHOCYTES (test c ode = 1067) 2.38 K/UL ABSOLUTE MONOCYTES (test cod e = 1068) 0.49 K/UL ABSOLUTE EOSINOPHILS (test c ode = 1040) 0.13 K/UL ABSOLUTE BASOPHILS (test cod e = 1069) 0.02 K/UL ABS IMMATURE GRANULOCYTES (t est code = 1020) 0.01 K/UL ABS NUCLEATED RBCS (test cod e = 68190) 0.00 K/UL Jairo August, THIRD [id number] 00:00:00* Test Item Value Reference Range Interpretation Comme nts TSH, THIRD GENERATION (test code = 2821) 0.811 UIU/ML Jairo CastellanosHAIRJOSAFAT, [id number] 08:34:41SPECIMEN NUMBER: [id number] CULTURE, URINE SPECIMEN NUMBER: [id number] SPECIMEN COMMENT: URINE SOURCE: URINE REPORT STATUS: FINAL ISOLATE NUMBER 1: ORGANISM: 08/05/2022 50-100,000 CFU/ML GRAM NEGATIVEBACILLI IDENTIFICATION: 08/06/2022 ESCHERICHIA COLI E. COLI AMOXICILLIN/CA SENSITIVE <=8/4AMPICILLIN RESISTANT >16CEFAZOLIN SENSITIVE 4CEFTRIAXONE SENSITIVE <=1CIPROFLOXACIN RESISTANT >2LEVOFLOXACIN RESISTANT >4NITROFURANTOIN SENSITIVE <=32PIP/TAZOBAC SENSITIVE &l t;=16TETRACYCLINE RESISTANT >8TOBRAMYCIN RESISTANT >8TRIMETH/SULFA RESISTANT >2/38 NOTE: NUMBERS DISPLAYED REPRESENT MINIMUM INHIBITORY CONCENTRATION (LYLE) WHICH IS EXPRESSED IN MCG/ML. THE [facility] has important pathology staff changes effective 07/12/2022. New pathology staff will provideuninterrupted, excellent patient care and clinical consultation. See URL: [email or web address]. UNLESS OTHERWISE INDICATED, ALL TESTING PERFORMED AT [facility] [address] [place] [address] [employer]OMOT[employer] ELECTRONICS ENGINEER: SUSI HOLLOWAY M.D. CLIA NUMBER [id number] [place]. [id number], [id number] 00:00:00* Test Item Value Reference Range Interpretation Comme nts CULTURE, URINE (test code = 53339) SPECIMEN NUMBER: [id number] Jairo CastellanosCULTURE, [id number] 00:00:00* Test Item Value Reference Range Interpretation Comme nts CULTURE, URINE (test code = 03875) SPECIMEN NUMBER: [id number] Jairo CastellanosCULTURE, [id number] 00:00:00* Test Item Value Reference Range Interpretation Comme nts CULTURE, URINE (test code = 94252) SPECIMEN NUMBER: [id number] Jairo CastellanosTSH, THIRD [id number] 05:35:34* Test Item Value Reference Range Interpretation Comme nts TSH, THIRD GENERATION (test code = 2821) 1.700 UIU/ML 0.400-4.100 [facility] has impo rtant pathology staff changes effective 07/12/2022. New pathology staff will provide uninterrupted, excellent patient care and clinical consultation. See URL: [email or web address]. UNLESS OTHERWISE INDICATED, ALL TESTING PERFORMED AT [facility] [address] [place] [address] [employer]OMOT[employer] ELECTRON[employer] ENGINEER: SUSI HOLLOWAY M.D. CLIA NUMBER [id number] [place]. [id number] CBC W/AUTO DIFF WITH [id number] 03:24:42* Test Item Value Reference Range Interpretation Comme nts WBC (test code = 1001) 7.0 K/UL 3.5-11.0 RBC (test code = 1002) 4.23 M/UL 3.80-5.40 HEMOGLOBIN (test code = 1003) 12.8 G/DL 11.5-15.5 HEMATOCRIT (test code = 1004) 38.3 % 34.0-45.0 MCV (test code = 1005) 90.5 fL 80.0-99.0 MCH (test code = 1006) 30.3 PG 25.0-33.0 MCHC (test code = 1007) 33.4 G/DL 31.0-36.0 RDW (test code = 1038) 13.0 % 11.5-15.0 NEUTROPHILS (test code = 1008) 56.7 % LYMPHOCYTES (test code = 1010) 33.1 % MONOCYTES (test code = 1011) 7.2 % EOSINOPHILS (test code = 1012) 2.4 % BASOPHILS (test code = 1013) 0.3 % IMMATURE GRANULOCYTES (test code = 1036) 0.3 % NUCLEATED RBCS (test code = 1065) 0.0 /100 WBC'S See_Comment [Automated messa ge] The system which generated this result transmitted reference range: 0.0. The reference range was not used to interpret this result as normal/abnormal. PLATELET COUNT (test code = 1015) 219 K/UL 130-400 ABSOLUTE NEUTROPHILS (test code = 1066) 3.99 K/UL 1.50-7.50 ABSOLUTE LYMPHOCYTES (test code = 1067) 2.33 K/UL 1.00-4.00 ABSOLUTE MONOCYTES (test code = 1068) 0.51 K/UL 0.20-1.00 ABSOLUTE EOSINOPHILS (test code = 1040) 0.17 K/UL 0.00-0.50 ABSOLUTE BASOPHILS (test code = 1069) 0.02 K/UL 0.00-0.20 ABS IMMATURE GRANULOCYTES (test code = 1020) 0.02 K/UL 0.00-0.10 ABS NUCLEATED RBCS (test code = 44046) 0.00 K/UL 0.00-0.11 PROTHROMBIN TIME (PT)2022-08-04 03:11:29* Test Item Value Reference Range Interpretation Comme nts PROTHROMBIN TIME (PT) (test code = 1402) 12.8 SECONDS 12.5-14.7 INR (test code = 50674) 0.9 SEE BELOW CURRENT RECOMMENDATIONS ARE FOR AN INR OF 2.0-3.0 FOR ALL PATIENTS ON VITAMIN K ANTAGONISTS, EXCEPT THOSE WITH PROSTHETIC HEART VALVES, FOR WHOM INR OF 2.5-3.5 IS RECOMMENDED. CBC W/AUTO [id number] 00:00:00* Test Item Value Reference Range Interpretation Comme nts WBC (test code = 1001) 7.0 K/UL RBC (test code = 1002) 4.23 M/UL HEMOGLOBIN (test code = 1003) 12.8 G/DL HEMATOCRIT (test code = 1004) 38.3 % MCV (test code = 1005) 90.5 fL MCH (test code = 1006) 30.3 PG MCHC (test code = 1007) 33.4 G/DL RDW (test code = 1038) 13.0 % NEUTROPHILS (test code = 1008) 56.7 % LYMPHOCYTES (test code = 1010) 33.1 % MONOCYTES (test code = 1011) 7.2 % EOSINOPHILS (test code = 1012) 2.4 % BASOPHILS (test code = 1013) 0.3 % IMMATURE GRANULOCYTES (test code = 1036) 0.3 % NUCLEATED RBCS (test code = 1065) 0.0 /100WBC'S PLATELET COUNT (test code = 1015) 219 K/UL ABSOLUTE NEUTROPHILS (test c ode = 1066) 3.99 K/UL ABSOLUTE LYMPHOCYTES (test c ode = 1067) 2.33 K/UL ABSOLUTE MONOCYTES (test cod e = 1068) 0.51 K/UL ABSOLUTE EOSINOPHILS (test c ode = 1040) 0.17 K/UL ABSOLUTE BASOPHILS (test cod e = 1069) 0.02 K/UL ABS IMMATURE GRANULOCYTES (t est code = 1020) 0.02 K/UL ABS NUCLEATED RBCS (test cod e = 59603) 0.00 K/UL Jairo CastellanosPROTHROMBIN TIME (PT)2022-08-04 00:00:00* Test Item Value Reference Range Interpretation Comme nts PROTHROMBIN TIME (PT) (test code = 1402) 12.8 SECONDS INR (test code = 13511) 0.9 Jairo CastellanosTSH, THIRD [id number] 00:00:00* Test Item Value Reference Range Interpretation Comme nts TSH, THIRD GENERATION (test code = 2821) 1.700 UIU/ML Jairo CastellanosCBC W/AUTO [id number] 00:00:00* Test Item Value Reference Range Interpretation Comme nts WBC (test code = 1001) 7.0 K/UL RBC (test code = 1002) 4.23 M/UL HEMOGLOBIN (test code = 1003) 12.8 G/DL HEMATOCRIT (test code = 1004) 38.3 % MCV (test code = 1005) 90.5 fL MCH (test code = 1006) 30.3 PG MCHC (test code = 1007) 33.4 G/DL RDW (test code = 1038) 13.0 % NEUTROPHILS (test code = 1008) 56.7 % LYMPHOCYTES (test code = 1010) 33.1 % MONOCYTES (test code = 1011) 7.2 % EOSINOPHILS (test code = 1012) 2.4 % BASOPHILS (test code = 1013) 0.3 % IMMATURE GRANULOCYTES (test code = 1036) 0.3 % NUCLEATED RBCS (test code = 1065) 0.0 /100WBC'S PLATELET COUNT (test code = 1015) 219 K/UL ABSOLUTE NEUTROPHILS (test c ode = 1066) 3.99 K/UL ABSOLUTE LYMPHOCYTES (test c ode = 1067) 2.33 K/UL ABSOLUTE MONOCYTES (test cod e = 1068) 0.51 K/UL ABSOLUTE EOSINOPHILS (test c ode = 1040) 0.17 K/UL ABSOLUTE BASOPHILS (test cod e = 1069) 0.02 K/UL ABS IMMATURE GRANULOCYTES (t est code = 1020) 0.02 K/UL ABS NUCLEATED RBCS (test cod e = 39466) 0.00 K/UL Jairo CastellanosPROTHROMBIN TIME (PT)2022-08-04 00:00:00* Test Item Value Reference Range Interpretation Comme nts PROTHROMBIN TIME (PT) (test code = 1402) 12.8 SECONDS INR (test code = 49806) 0.9 Jairo CastellanosTSH, THIRD [id number] 00:00:00* Test Item Value Reference Range Interpretation Comme nts TSH, THIRD GENERATION (test code = 2821) 1.700 UIU/ML Jairo CastellanosCBC W/AUTO [id number] 00:00:00* Test Item Value Reference Range Interpretation Comme nts WBC (test code = 1001) 7.0 K/UL RBC (test code = 1002) 4.23 M/UL HEMOGLOBIN (test code = 1003) 12.8 G/DL HEMATOCRIT (test code = 1004) 38.3 % MCV (test code = 1005) 90.5 fL MCH (test code = 1006) 30.3 PG MCHC (test code = 1007) 33.4 G/DL RDW (test code = 1038) 13.0 % NEUTROPHILS (test code = 1008) 56.7 % LYMPHOCYTES (test code = 1010) 33.1 % MONOCYTES (test code = 1011) 7.2 % EOSINOPHILS (test code = 1012) 2.4 % BASOPHILS (test code = 1013) 0.3 % IMMATURE GRANULOCYTES (test code = 1036) 0.3 % NUCLEATED RBCS (test code = 1065) 0.0 /100WBC'S PLATELET COUNT (test code = 1015) 219 K/UL ABSOLUTE NEUTROPHILS (test c ode = 1066) 3.99 K/UL ABSOLUTE LYMPHOCYTES (test c ode = 1067) 2.33 K/UL ABSOLUTE MONOCYTES (test cod e = 1068) 0.51 K/UL ABSOLUTE EOSINOPHILS (test c ode = 1040) 0.17 K/UL ABSOLUTE BASOPHILS (test cod e = 1069) 0.02 K/UL ABS IMMATURE GRANULOCYTES (t est code = 1020) 0.02 K/UL ABS NUCLEATED RBCS (test cod e = 85661) 0.00 K/UL Jairo Collins EmanuelPROTHROMBIN TIME (PT)2022-08-04 00:00:00* Test Item Value Reference Range Interpretation Comme nts PROTHROMBIN TIME (PT) (test code = 1402) 12.8 SECONDS INR (test code = 45251) 0.9 Jairo Guadalupe AustinTSH, THIRD [id number] 00:00:00* Test Item Value Reference Range Interpretation Comme nts TSH, THIRD GENERATION (test code = 2821) 1.700 UIU/ML Jairo CastellanosPOCT [id number] 18:59:00* Test Item Value Reference Range Interpretation Comme nts POCT PREG (test code = 1605) negative On board controls acceptable with C Line (test code = 3574) present POCT PREG LOT # (test code = 3575) [id number] POCT PREG TEST DATE ( test code = 3576) 04/12/2023 Lab Interpretation (test cod e = 59621-9) [facility]17336[facility]2021-[facility]-12 02:22:00* Test Item Value Reference Range Interpretation Comme nts NA (test code = 1080315730) 135 mmol/L 135-145 K (test code = 6644223098) 3.9 mmol/L 3.5-5.0 CL (test code = 0183750242) 104 mmol/L 98-108 CO2 TOTAL (test code = 8641351299) 23 mmol/L 23-31 AGAP (test code = 5374267182) 2-16 BUN (test code = 1351009474) 15 mg/dL 7-23 GLUCOSE (test code = 3095486710) 107 mg/dL 70-110 CREATININE (test code = 9295135325) 0.62 mg/dL 0.50-1.04 TOTAL BILI (test code = 1942079970) 0.6 mg/dL 0.1-1.1 CALCIUM (test code = 8349435982) 9.0 mg/dL 8.6-10.6 T PROTEIN (test code = 4779779547) 7.3 g/dL 6.3-8.2 ALBUMIN (test code = 3794195967) 4.3 g/dL 3.5-5.0 ALK PHOS (test code = 8259679046) 73 U/L 34-122 ALTv (test code = 1742-6) 17 U/L 5-35 AST(SGOT) (test code = 4838802015) 27 U/L 13-40 eGFR (test code = 2478314648) mL/min/1.73m2 TRINY (test code = TRINY) Association [...] or urine or abnormalities in imaging tests). [facility] 02:22:[facility]* Test Item Value Reference Range Interpretation Comme [facility] LIPASE (test code = 2368373167) 49 U/L 0-220 Lab Interpretation (test cod e = 53067-6) Normal [facility] THRMPLAS [id number] 02:17:41* Test Item Value Reference Range Interpretation Comme nts APTT Patient (test code = 3173-2) See_Comment [Automated message] The system which generated this result transmitted reference range: 23 - 38 Seconds. The reference range was not used to interpret this result as normal/abnormal. TRINY (test code = TRINY) The [facility] patient population mean normal value for aPTT is 30 seconds. Lab Interpretation (test code = 05006-8) Normal [facility]burg[facility] / [id number] 02:15:40* Test Item Value Reference Range Interpretation Comme [facility] PROTIME PATIENT (test code = 5964-2) See_Comment [Automated [employer]] The system which generated this result transmitted reference range: 12.0 - 14.7 Seconds. The reference range was not used to interpret this result as normal/abnormal. INR (test code = 6301-6) Normal INR <1.1; Warfarin Therapeutic range 2.0 to 3.0 or 2.5 to 3.5, depending upon the indications. Lab Interpretation (test code = 05329-4) Normal [facility]burgCBC WITH [id number] 02:08:23* Test Item Value Reference Range Interpretation Comme nts WBC (test code = 6690-2) See_Comment [Automated [employer]] The system which generated this result transmitted reference range: 4.30 - 11.10 10*3/?L. The reference range was not used to interpret this result as normal/abnormal. RBC (test code = 789-8) See_Comment [Automated [employer] ge] The system which generated this result transmitted reference range: 3.93 - 5.25 10*6/?L. The reference range was not used to interpret this result as normal/abnormal. HGB (test code = 718-7) 12.9 g/dL 11.6-15.0 HCT (test code = 4544-3) 38.7 % 35.7-45.2 MCV (test code = 787-2) 87.2 fL 80.6-95.5 MCH (test code = 785-6) 29.1 pg 25.9-32.8 MCHC (test code = 786-4) 33.3 g/dL 31.6-35.1 RDW-SD (test code = 07626-5) 40.4 fL 39.0-49.9 RDW-CV (test code = 788-0) 12.6 % 12.0-15.5 PLT (test code = 777-3) See_Comment L [Automated [employer] ge] The system which generated this result transmitted reference range: 166 - 358 10*3/?L. The reference range was not used to interpret this result as normal/abnormal. MPV (test code = 39688-3) 12.5 fL 9.5-12.9 NRBC/100 WBC (test code = 5555972938) See_Comment [Automated [employer] ssage] The system which generated this result transmitted reference range: 0.0 - 10.0 /100 WBCs. The reference range was not used to interpret this result as normal/abnormal. NRBC x10^3 (test code = 2569081329) <0.01 See_Comment [Automated [employer] ge] The system which generated this result transmitted reference range: 10*3/?L. The reference range was not used to interpret this result as normal/abnormal. GRAN MAT (NEUT) % (test code = 770-8) 78.2 % IMM GRAN % (test code = 9625240283) 0.60 % LYMPH % (test code = 736-9) 13.9 % MONO % (test code = 5905-5) 6.9 % EOS % (test code = 713-8) 0.2 % BASO % (test code = 706-2) 0.2 % GRAN MAT x10^3(ANC) (test code = 4245684379) 4.21 10*3/uL 1.88-7.09 IMM GRAN x10^3 (test code = 1166800905) 0.03 10*3/uL 0.00-0.06 LYMPH x10^3 (test code = 731-0) 0.75 10*3/uL 1.32-3.29 L MONO x10^3 (test code = 742-7) 0.37 10*3/uL 0.33-0.92 EOS x10^3 (test code = 711-2) <0.03 0.03-0.39 L BASO x10^3 (test code = 704-7) <0.03 0.01-0.07 Lab Interpretation (test code = 49788-7) Abnormal [facility] [id number] 01:48:00* Test Item Value Reference Range Interpretation Comme nts POCT PREG (test code = 1605) negative On board controls acceptable with C Line (test code = 3574) present POCT PREG LOT # (test code = 3575) [id number] POCT PREG TEST DATE ( test code = 3576) 2022-06-13 Lab Interpretation (test cod e = 93927-1) Normal [facility]burg[facility]AUTO [id number] 00:00:00* Test Item Value Reference Range Interpretation Comme nts WBC (test code = 1001) 6.2 K/UL RBC (test code = 1002) 4.51 M/UL HEMOGLOBIN (test code = 1003) 13.3 G/DL HEMATOCRIT (test code = 1004) 39.3 % MCV (test code = 1005) 87.1 fL MCH (test code = 1006) 29.5 PG MCHC (test code = 1007) 33.8 G/DL RDW (test code = 1038) 12.6 % NEUTROPHILS (test code = 1008) 54.3 % LYMPHOCYTES (test code = 1010) 37.5 % MONOCYTES (test code = 1011) 6.3 % EOSINOPHILS (test code = 1012) 1.4 % BASOPHILS (test code = 1013) 0.3 % IMMATURE GRANULOCYTES (test code = 1036) 0.2 % NUCLEATED RBCS (test code = 1065) 0.0 /100WBC'S PLATELET COUNT (test code = 1015) 276 K/UL ABSOLUTE NEUTROPHILS (test c ode = 1066) 3.39 K/UL ABSOLUTE LYMPHOCYTES (test c ode = 1067) 2.34 K/UL ABSOLUTE MONOCYTES (test cod e = 1068) 0.39 K/UL ABSOLUTE EOSINOPHILS (test c ode = 1040) 0.09 K/UL ABSOLUTE BASOPHILS (test cod e = 1069) 0.02 K/UL ABS IMMATURE GRANULOCYTES (t est code = 1020) 0.01 K/UL ABS NUCLEATED RBCS (test cod e = 42413) 0.00 K/UL Jairo Guadalupe EmanuelCOMPREHENSIVE METABOLIC [id number] 00:00:00* Test Item Value Reference Range Interpretation Comme nts GLUCOSE (test code = 2217) 92 MG/DL BUN (test code = 2208) 11 MG/DL CREATININE (test code = 2214) 0.73 MG/DL eGFR AMER. (test cod e = 60243) 121 ML/MIN/1.73 eGFR NON- AMER. (test code = 20527) 104 ML/MIN/1.73 CALC BUN/CREAT (test code = 2235) 15 RATIO SODIUM (test code = 2231) 139 MEQ/L POTASSIUM (test code = 2228) 4.1 MEQ/L CHLORIDE (test code = 2215) 103 MEQ/L CARBON DIOXIDE (test code = 2206) 27 MEQ/L CALCIUM (test code = 2209) 9.8 MG/DL PROTEIN, TOTAL (test code = 2229) 7.9 G/DL ALBUMIN (test code = 2201) 4.8 G/DL CALC GLOBULIN (test code = 2240) 3.1 G/DL CALC A/G RATIO (test code = 2234) 1.5 RATIO BILIRUBIN, TOTAL (test code = 2207) 0.3 MG/DL ALKALINE PHOSPHATASE (test code = 2204) 74 U/L AST (test code = 2218) 17 U/L ALT (test code = 2219) 14 U/L Jairo [id number] 00:00:00* Test Item Value Reference Range Interpretation Comme nts TSH, THIRD GENERATION (test code = 2821) 0.787 UIU/ML Jairo Guadalupe EmanuelCBC W/AUTO [id number] 00:00:00* Test Item Value Reference Range Interpretation Comme nts WBC (test code = 1001) 6.2 K/UL RBC (test code = 1002) 4.51 M/UL HEMOGLOBIN (test code = 1003) 13.3 G/DL HEMATOCRIT (test code = 1004) 39.3 % MCV (test code = 1005) 87.1 fL MCH (test code = 1006) 29.5 PG MCHC (test code = 1007) 33.8 G/DL RDW (test code = 1038) 12.6 % NEUTROPHILS (test code = 1008) 54.3 % LYMPHOCYTES (test code = 1010) 37.5 % MONOCYTES (test code = 1011) 6.3 % EOSINOPHILS (test code = 1012) 1.4 % BASOPHILS (test code = 1013) 0.3 % IMMATURE GRANULOCYTES (test code = 1036) 0.2 % NUCLEATED RBCS (test code = 1065) 0.0 /100WBC'S PLATELET COUNT (test code = 1015) 276 K/UL ABSOLUTE NEUTROPHILS (test c ode = 1066) 3.39 K/UL ABSOLUTE LYMPHOCYTES (test c ode = 1067) 2.34 K/UL ABSOLUTE MONOCYTES (test cod e = 1068) 0.39 K/UL ABSOLUTE EOSINOPHILS (test c ode = 1040) 0.09 K/UL ABSOLUTE BASOPHILS (test cod e = 1069) 0.02 K/UL ABS IMMATURE GRANULOCYTES (t est code = 1020) 0.01 K/UL ABS NUCLEATED RBCS (test cod e = 18229) 0.00 K/UL Jairo Guadalupe EmanuelCOMPREHENSIVE METABOLIC [id number] 00:00:00* Test Item Value Reference Range Interpretation Comme nts GLUCOSE (test code = 2217) 92 MG/DL BUN (test code = 2208) 11 MG/DL CREATININE (test code = 2214) 0.73 MG/DL eGFR AMER. (test cod e = 23708) 121 ML/MIN/1.73 eGFR NON- AMER. (test code = 94809) 104 ML/MIN/1.73 CALC BUN/CREAT (test code = 2235) 15 RATIO SODIUM (test code = 2231) 139 MEQ/L POTASSIUM (test code = 2228) 4.1 MEQ/L CHLORIDE (test code = 2215) 103 MEQ/L CARBON DIOXIDE (test code = 2206) 27 MEQ/L CALCIUM (test code = 2209) 9.8 MG/DL PROTEIN, TOTAL (test code = 2229) 7.9 G/DL ALBUMIN (test code = 2201) 4.8 G/DL CALC GLOBULIN (test code = 2240) 3.1 G/DL CALC A/G RATIO (test code = 2234) 1.5 RATIO BILIRUBIN, TOTAL (test code = 2207) 0.3 MG/DL ALKALINE PHOSPHATASE (test code = 2204) 74 U/L AST (test code = 2218) 17 U/L ALT (test code = 2219) 14 U/L Jairo [id number] 00:00:00* Test Item Value Reference Range Interpretation Comme nts TSH, THIRD GENERATION (test code = 2821) 0.787 UIU/ML Jairo CastellanosCBC W/AUTO [id number] 00:00:00* Test Item Value Reference Range Interpretation Comme nts WBC (test code = 1001) 6.2 K/UL RBC (test code = 1002) 4.51 M/UL HEMOGLOBIN (test code = 1003) 13.3 G/DL HEMATOCRIT (test code = 1004) 39.3 % MCV (test code = 1005) 87.1 fL MCH (test code = 1006) 29.5 PG MCHC (test code = 1007) 33.8 G/DL RDW (test code = 1038) 12.6 % NEUTROPHILS (test code = 1008) 54.3 % LYMPHOCYTES (test code = 1010) 37.5 % MONOCYTES (test code = 1011) 6.3 % EOSINOPHILS (test code = 1012) 1.4 % BASOPHILS (test code = 1013) 0.3 % IMMATURE GRANULOCYTES (test code = 1036) 0.2 % NUCLEATED RBCS (test code = 1065) 0.0 /100WBC'S PLATELET COUNT (test code = 1015) 276 K/UL ABSOLUTE NEUTROPHILS (test c ode = 1066) 3.39 K/UL ABSOLUTE LYMPHOCYTES (test c ode = 1067) 2.34 K/UL ABSOLUTE MONOCYTES (test cod e = 1068) 0.39 K/UL ABSOLUTE EOSINOPHILS (test c ode = 1040) 0.09 K/UL ABSOLUTE BASOPHILS (test cod e = 1069) 0.02 K/UL ABS IMMATURE GRANULOCYTES (t est code = 1020) 0.01 K/UL ABS NUCLEATED RBCS (test cod e = 35162) 0.00 K/UL Jairo CastellanosCOMPREHENSIVE METABOLIC [id number] 00:00:00* Test Item Value Reference Range Interpretation Comme nts GLUCOSE (test code = 2217) 92 MG/DL BUN (test code = 2208) 11 MG/DL CREATININE (test code = 2214) 0.73 MG/DL eGFR AMER. (test cod e = 91338) 121 ML/MIN/1.73 eGFR NON- AMER. (test code = 69472) 104 ML/MIN/1.73 CALC BUN/CREAT (test code = 2235) 15 RATIO SODIUM (test code = 2231) 139 MEQ/L POTASSIUM (test code = 2228) 4.1 MEQ/L CHLORIDE (test code = 2215) 103 MEQ/L CARBON DIOXIDE (test code = 2206) 27 MEQ/L CALCIUM (test code = 2209) 9.8 MG/DL PROTEIN, TOTAL (test code = 2229) 7.9 G/DL ALBUMIN (test code = 2201) 4.8 G/DL CALC GLOBULIN (test code = 2240) 3.1 G/DL CALC A/G RATIO (test code = 2234) 1.5 RATIO BILIRUBIN, TOTAL (test code = 2207) 0.3 MG/DL ALKALINE PHOSPHATASE (test code = 2204) 74 U/L AST (test code = 2218) 17 U/L ALT (test code = 2219) 14 U/L Jairo [id number] 00:00:00* Test Item Value Reference Range Interpretation Comme nts TSH, THIRD GENERATION (test code = 2821) 0.787 UIU/ML Jairo Guadalupe EmanuelCBC W/AUTO [id number] 00:00:00* Test Item Value Reference Range Interpretation Comme nts WBC (test code = 1001) 12.3 K/UL RBC (test code = 1002) 4.45 M/UL HEMOGLOBIN (test code = 1003) 13.0 G/DL HEMATOCRIT (test code = 1004) 38.4 % MCV (test code = 1005) 86.3 fL MCH (test code = 1006) 29.2 PG MCHC (test code = 1007) 33.9 G/DL RDW (test code = 1038) 13.0 % NEUTROPHILS (test code = 1008) 79.2 % LYMPHOCYTES (test code = 1010) 16.7 % MONOCYTES (test code = 1011) 3.6 % EOSINOPHILS (test code = 1012) 0.2 % BASOPHILS (test code = 1013) 0.3 % PLATELET COUNT (test code = 1015) 259 K/UL Jairo [id number] 00:00:00* Test Item Value Reference Range Interpretation Comme nts TSH, THIRD GENERATION (test code = 2821) 0.760 UIU/ML Jairo Guadalupe AustinCBC W/AUTO [id number] 00:00:00* Test Item Value Reference Range Interpretation Comme nts WBC (test code = 1001) 12.3 K/UL RBC (test code = 1002) 4.45 M/UL HEMOGLOBIN (test code = 1003) 13.0 G/DL HEMATOCRIT (test code = 1004) 38.4 % MCV (test code = 1005) 86.3 fL MCH (test code = 1006) 29.2 PG MCHC (test code = 1007) 33.9 G/DL RDW (test code = 1038) 13.0 % NEUTROPHILS (test code = 1008) 79.2 % LYMPHOCYTES (test code = 1010) 16.7 % MONOCYTES (test code = 1011) 3.6 % EOSINOPHILS (test code = 1012) 0.2 % BASOPHILS (test code = 1013) 0.3 % PLATELET COUNT (test code = 1015) 259 K/UL Jairo Guadalupe [id number] 00:00:00* Test Item Value Reference Range Interpretation Comme nts TSH, THIRD GENERATION (test code = 2821) 0.760 UIU/ML Jairo Guadalupe AustinCBC W/AUTO [id number] 00:00:00* Test Item Value Reference Range Interpretation Comme nts WBC (test code = 1001) 12.3 K/UL RBC (test code = 1002) 4.45 M/UL HEMOGLOBIN (test code = 1003) 13.0 G/DL HEMATOCRIT (test code = 1004) 38.4 % MCV (test code = 1005) 86.3 fL MCH (test code = 1006) 29.2 PG MCHC (test code = 1007) 33.9 G/DL RDW (test code = 1038) 13.0 % NEUTROPHILS (test code = 1008) 79.2 % LYMPHOCYTES (test code = 1010) 16.7 % MONOCYTES (test code = 1011) 3.6 % EOSINOPHILS (test code = 1012) 0.2 % BASOPHILS (test code = 1013) 0.3 % PLATELET COUNT (test code = 1015) 259 K/UL Jairo [id number] 00:00:00* Test Item Value Reference Range Interpretation Comme nts TSH, THIRD GENERATION (test code = 2821) 0.760 UIU/ML Jairo CastellanosC W/AUTO [id number] 00:00:00* Test Item Value Reference Range Interpretation Comme nts WBC (test code = 1001) 7.4 K/UL RBC (test code = 1002) 4.12 M/UL HEMOGLOBIN (test code = 1003) 12.2 G/DL HEMATOCRIT (test code = 1004) 36.2 % MCV (test code = 1005) 87.9 fL MCH (test code = 1006) 29.6 PG MCHC (test code = 1007) 33.7 G/DL RDW (test code = 1038) 12.4 % NEUTROPHILS (test code = 1008) 54.0 % LYMPHOCYTES (test code = 1010) 35.9 % MONOCYTES (test code = 1011) 7.5 % EOSINOPHILS (test code = 1012) 2.2 % BASOPHILS (test code = 1013) 0.4 % PLATELET COUNT (test code = 1015) 240 K/UL [facility] [id number] 00:00:00* Test Item Value Reference Range Interpretation Comme nts WBC (test code = 1001) 7.4 K/UL RBC (test code = 1002) 4.12 M/UL HEMOGLOBIN (test code = 1003) 12.2 G/DL HEMATOCRIT (test code = 1004) 36.2 % MCV (test code = 1005) 87.9 fL MCH (test code = 1006) 29.6 PG MCHC (test code = 1007) 33.7 G/DL RDW (test code = 1038) 12.4 % NEUTROPHILS (test code = 1008) 54.0 % LYMPHOCYTES (test code = 1010) 35.9 % MONOCYTES (test code = 1011) 7.5 % EOSINOPHILS (test code = 1012) 2.2 % BASOPHILS (test code = 1013) 0.4 % PLATELET COUNT (test code = 1015) 240 K/UL [facility] [id number] 00:00:00* Test Item Value Reference Range Interpretation Comme nts WBC (test code = 1001) 7.4 K/UL RBC (test code = 1002) 4.12 M/UL HEMOGLOBIN (test code = 1003) 12.2 G/DL HEMATOCRIT (test code = 1004) 36.2 % MCV (test code = 1005) 87.9 fL MCH (test code = 1006) 29.6 PG MCHC (test code = 1007) 33.7 G/DL RDW (test code = 1038) 12.4 % NEUTROPHILS (test code = 1008) 54.0 % LYMPHOCYTES (test code = 1010) 35.9 % MONOCYTES (test code = 1011) 7.5 % EOSINOPHILS (test code = 1012) 2.2 % BASOPHILS (test code = 1013) 0.4 % PLATELET COUNT (test code = 1015) 240 K/UL Jairo Castellanos Notes Date/Time Note Provider Source Jairo Castellanos [facility]2024-07-02 00:00:00 Jairo Watson [facility]2024-06-18 00:00:00 Jairo Watson [facility]"
[2024-09-09] MEDS ORDERED: HYDROCODONE/CHLORPHEN 5 ML/OSYR ONE (15:23)
[2024-09-09] MEDS ORDERED: IPRATROPIUM BROM 0.5MG/2.5ML ONE (15:23)
[2024-09-09] MEDS ORDERED: dexAMETHasone 10 MG/ML VIAL ONE (15:23)
[2024-09-09] MEDS ORDERED: ALBUTEROL 2.5 MG/3 ML NEB SOL ONE (15:23)
--- NOTE | 2024-09-09 15:39 | RAD REPORT ---
EXAM: Chest Pa And Lat (2 Views) HISTORY: 44 years Female Chest pain;COPD;Congestion COMPARISON: 08/28/22. FINDINGS: LUNGS/PLEURA: The lungs are clear. No pleural effusions or pneumothorax. No pulmonary edema. CARDIAC/MEDIASTINUM: The cardiac silhouette is within normal limits. UPPER ABDOMEN: No significant abnormality. BONES: No acute abnormality. LINES/TUBES/OTHER: N/A IMPRESSION: No evidence of acute cardiopulmonary disease. No significant change from prior.
[2024-09-09 16:13] LABS: Influenza A Ag Negative; Influenza B Ag Negative; SARS-CoV-2 Antigen Rapid Res Negative (Negative)
--- NOTE | 2024-09-09 16:22 | EDPHYS ---
Physician Documentation [facility] Name: Kemi Miller Age: 44 yrs Sex: Female : 1980 Arrival Date: 09/09/2024 Time: 14:55 Bed 16 Private MD: ED Physician Derik Byrnes HPI: 09/09 15:15 This 44 yrs old Female presents to ER via Ambulatory with complaints of Cough, sb4 Chest Pain, Shortness Of Breath, Back Pain. 15:15 cough, congestion, chest pain x 2 weeks. went to PCP a few days ago, was given sb4 prescriptions for tessalon perles and cetirizine- no improvement in symptoms. is coughing up mucus, feels short of breath. 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 - Infectious Disease History:: Denies. - Social history:: Smoking status: Patient denies any tobacco usage or history of. ROS: 15:15 Constitutional: Negative for fever, chills, and weight loss, sb4 15:15 ENT: Positive for nasal discharge, sinus congestion, 15:15 Cardiovascular: Positive for chest pain, with cough, 15:15 Respiratory: Positive for cough, with yellow sputum, 15:15 All other systems are negative, Exam: 15:16 Head/Face: Normocephalic, atraumatic. Eyes: Extra-ocular motions intact. Periorbital sb4 areas with no swelling, redness, or edema. ENT: Mucous membranes moist. Cardiovascular: Regular rate and rhythm with a normal S1 and S2. Respiratory: No increased work of breathing, no retractions or nasal flaring. Abdomen/GI: Soft, non-tender, no distension. Skin: Warm, dry with normal turgor. Normal color with no rashes, no lesions, and no evidence of cellulitis. 15:16 Constitutional: The patient appears alert, awake, obviously ill, 15:16 Respiratory: Breath sounds: are clear throughout, Vital Signs: 15:10 BP 124 / 101; Pulse 69; Resp 18; Temp 97.1(TE); Pulse Ox 100% on R/A; Weight 74.84 kg; ld1 Height 5 ft. 2 in. ; Pain 5/10; 15:20 BP 126 / 81; Pulse 59; Resp 20; Pulse Ox 97% ; kj2 15:10 Body Mass Index 30.18 (74.84 kg, 157.48 cm) ld1 15:10 Pain Scale: Adult ld1 MDM: 15:00 Medical Screening Exam initiated sb4 16:22 Data reviewed: vital signs, nurses notes, lab test result(s), radiologic studies, and sb4 as a result, I will discharge patient. Counseling: I had a detailed discussion with the patient and/or guardian regarding the historical points, exam findings, and any diagnostic results supporting the discharge/admit diagnosis, lab results, radiology results, the need for outpatient follow up, for definitive care, to return to the emergency department if symptoms worsen or persist or if there are any questions or concerns that arise at home. 09/09 15:14 Order name: COVID-19 Ag + Flu A+B Ag; Complete Time: 16:17 sb4 09/09 15:14 Order name: Chest Pa And Lat (2 Views) XRAY; Complete Time: 15:41 sb4 Administered Medications: 15:35 Drug: Tussionex Pennkinetic ER PO Suspension 5 ml PO once Route: PO; kj2 16:40 Follow up: Response: No adverse reaction kj2 15:36 Drug: DuoNeb Nebulize (3:1) (2.5 mg - 0.5 mg) 3 ml Nebulizer once Route: Nebulizer; kj2 16:40 Follow up: Response: No adverse reaction kj2 15:36 Drug: Dexamethasone IM 10 mg IM once Route: IM; Site: left deltoid; kj2 16:40 Follow up: Response: No adverse reaction kj2 Disposition Summary: 09/09/24 16:22 Discharge Ordered Notes: Location: Home sb4 Problem: new sb4 Symptoms: have improved sb4 Condition: Stable sb4 Diagnosis - Acute bronchitis, unspecified sb4 Followup: sb4 - With: Emergency Department - When: As needed - Reason: Trouble breathing, Worsening of condition Discharge Instructions: - Discharge Summary Sheet sb4 - Acute Bronchitis, Adult sb4 Forms: - Patient Portal Instructions sb4 - Leadership Thank You Letter sb4 Prescriptions: - Albuterol Sulfate 2.5 mg /3 mL (0.083 %) Inhalation Solution for Nebulization - inhale 1 unit NEBULIZATION route every 8 hours As needed; 10 unit; Refills: 0, sb4 Product Selection Permitted - Prednisone 20 mg Oral Tablet - take 1 tablet ORAL route every 12 hours for 5 days; 10 tablet; Refills: 0, sb4 Product Selection Permitted Addendum: 09/11/2024 07:03 Co-signature as Attending Physician, Derik Byrnes MD I reviewed the patient's care r n provided by the Advanced Practice Provider and agree with the diagnosis and treatment plan. Signatures: Dispatcher [employer] EDMS Derik Byrnes MD MD rn Sims, Lauren RN RN ld1 Brittany Mendez PA-C PA-C sb4 Valentina Cr RN RN kj2 Corrections: (The following items were deleted from the chart) 09/09 15:15 15:15 COVID-19 Ag + Flu A+B [id number] ordered. [facility]
--- NOTE | 2024-09-09 16:22 | ER ---
Nurse's Notes [facility] Name: Kemi Miller Age: 44 yrs Sex: Female : 1980 Arrival Date: 09/09/2024 Time: 14:55 Bed 16 Private MD: Diagnosis: Acute bronchitis, unspecified Presentation: 09/09 15:10 Chief complaint: Patient states: cough, runny nose X 2-3 days. Pt reports back/chest ld1 hurting from coughing. Coronavirus screen: At this time, the client does not indicate any symptoms associated with coronavirus-19. Ebola Screen: No symptoms or risks identified at this time. Initial Sepsis Screen: Does the patient meet any 2 criteria? No. Patient's initial sepsis screen is negative. Does the patient have a suspected source of infection? No. Patient's initial sepsis screen is negative. Risk Assessment: Do you want to hurt yourself or someone else? Patient reports no desire to harm self or others. Onset of symptoms was September 09, 2024. 15:10 Method Of Arrival: Ambulatory ld1 15:10 Acuity: DOROTA 4 ld1 Triage Assessment: 15:11 General: Appears in no apparent distress. comfortable, Behavior is calm, cooperative, ld1 appropriate for age. Pain: Complains of pain in back and chest Pain does not radiate. Pain currently is 6 out of 10 on a pain scale. Quality of pain is described as dull. EENT: No signs and/or symptoms were reported regarding the EENT system. Neuro: Level of Consciousness is awake, alert, obeys commands, Oriented to person, place, time, situation. Cardiovascular: Capillary refill < 3 seconds Patient's skin is warm and dry. Respiratory: Airway is patent Respiratory effort is even, unlabored. GI: Abdomen is flat, non-distended. : No signs and/or symptoms were reported regarding the genitourinary system. Derm: No signs and/or symptoms reported regarding the dermatologic system. Musculoskeletal: No signs and/or symptoms reported regarding the musculoskeletal system. 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 - Infectious Disease History:: Denies. - Social history:: Smoking status: Patient denies any tobacco usage or history of. Screenin:20 [facility] ED Fall Risk Assessment (Adult) History of falling in the last 3 months, kj2 including since admission No falls in past 3 months (0 pts) Confusion or Disorientation No (0 pts) Intoxicated or Sedated No (0 pts) Impaired Gait No (0 pts) Mobility Assist Device Used No (0 pt) Altered Elimination No (0 pt) Score/Fall Risk Level 0 - 2 = Low Risk Maintained a safe environment, Hourly rounding (assess needs \T\ fall precautionary measures) done. Abuse screen: Denies threats or abuse. Denies injuries from another. Nutritional screening: No deficits noted. Tuberculosis screening: No symptoms or risk factors identified. Assessment: 15:20 General: Appears in no apparent distress. Behavior is cooperative. Pain: Complains of kj2 pain in chest and back Pain currently is 5 out of 10 on a pain scale. Pain began 2-3 days ago. Neuro: Level of Consciousness is awake, alert, obeys commands, Oriented to person, place, time, situation. Cardiovascular: Patient's skin is warm and dry. Respiratory: Reports shortness of breath on exertion cough that is non-productive. GI: No signs and/or symptoms were reported involving the gastrointestinal system. : No signs and/or symptoms were reported regarding the genitourinary system. Vital Signs: 15:10 BP 124 / 101; Pulse 69; Resp 18; Temp 97.1(TE); Pulse Ox 100% on R/A; Weight 74.84 kg; ld1 Height 5 ft. 2 in. ; Pain 5/10; 15:20 BP 126 / 81; Pulse 59; Resp 20; Pulse Ox 97% ; kj2 15:10 Body Mass Index 30.18 (74.84 kg, 157.48 cm) ld1 15:10 Pain Scale: Adult ld1 ED Course: 14:57 Patient arrived in ED. bd 14:59 Brittany Mendez PA-C is PHCP. sb4 14:59 Derik Byrnes MD is Attending Physician. sb4 15:11 Triage completed. ld1 15:11 Arm band placed on right wrist. ld1 15:20 Valentina Cr, RN is Primary Nurse. kj2 15:20 Patient has correct armband on for positive identification. Bed in low position. Call kj2 light in reach. Adult w/ patient. Provided Education on: call light. Client placed on continuous cardiac and pulse oximetry monitoring. NIBP monitoring applied. quality assurance monitor body on. Pulse ox on. 15:28 Chest Pa And Lat (2 Views) XRAY In Process Unspecified. EDMS 15:39 No provider procedures requiring assistance completed. kj2 16:39 Patient did not have IV access during this emergency room visit. Patient maintains SpO2 kj2 saturation greater than 95% on room air. Administered Medications: 15:35 Drug: Tussionex Pennkinetic ER PO Suspension 5 ml PO once Route: PO; kj2 16:40 Follow up: Response: No adverse reaction kj2 15:36 Drug: DuoNeb Nebulize (3:1) (2.5 mg - 0.5 mg) 3 ml Nebulizer once Route: Nebulizer; kj2 16:40 Follow up: Response: No adverse reaction kj2 15:36 Drug: Dexamethasone IM 10 mg IM once Route: IM; Site: left deltoid; kj2 16:40 Follow up: Response: No adverse reaction kj2 Medication: 16:39 VIS not applicable for this client. kj2 Outcome: 16:22 Discharge ordered by . sb4 16:39 Discharged to home ambulatory, kj2 16:39 Condition: stable 16:39 Discharge instructions given to patient, Instructed on discharge instructions, follow up and referral plans. Demonstrated understanding of instructions, follow-up care, medications, 17:02 Patient left the ED. kj2 Signatures: Dispatcher [employer] EDMS Chelo Nguyễn Lauren, RN RN ld1 Brittany Mendez, PA-C PA-C sb4 Valentina Cr, RN RN kj2 Corrections: (The following items were deleted from the chart) 15:13 15:10 Acuity: DOROTA 3 ld1 ld1
[2024-09-10 06:21] VITALS: TEMP 97.1
[2024-09-10 06:22] VITALS: BP 126/81; O2SAT 97
== END 2024-09-09 17:02 | disposition home or self-care (01) ==
LOC: ER 14:55
DX: J20.9 Acute bronchitis, unspecified (principal); Z11.52 Encounter for screening for COVID-19
CPT/HCPCS: 36415; 71046; 87428; J1100; J7613; J7644